=== PATIENT | male | born 1965 | race Caucasian/White ===

== ENCOUNTER 2020-08-07 13:43 | Outpatient (REF) | payer OTHER, SELFPAY ==
--- NOTE | ~2020-08-07 | XR_ITS ---
EXAMINATION: XR CHEST CLINICAL INFORMATION: Shortness of breath with pleurisy COMPARISON: July 01, 2005 report TECHNIQUE: 2 views of the chest were obtained. FINDINGS: No significant abnormality is noted involving the heart, lungs, mediastinum, bony thorax or soft tissues. XR/XR chest 2V IMPRESSION: No acute disease.
== END 2020-08-07 13:44 | disposition home or self-care (01) ==
LOC: HO.XRAY 13:43
PROVIDERS: PCP Internal Medicine Medical Oncology; Visit Provider Internal Medicine Medical Oncology
DX: R09.1 Pleurisy (principal); R06.02 Shortness of breath
CPT/HCPCS: 71046

== ENCOUNTER 2023-07-30 09:43 | Outpatient (AMB) | payer OTHER, SELFPAY ==
--- NOTE | 2023-07-30 09:52 | A.OFFVIS_ITS ---
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 States pain is mainly on his lateral aspect of elbow. Hx of elbow injection about 10 years ago with good pain relief. Pain present for about 8 months and has improved since. Denies recent injury, numbness or tingling. Referred by Dr. Moran PCP. 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 Denies trauma. Had similar right side, injection done, which resolved it. Left elbow pain constant for past several months. Had used counterforce brace. Tried tylenol. Still sensitive with gripping. No numbness. DM, controlled per patient. 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 MSK: Inspection reveals appropriate head and neck positioning. Cervical ROM was full. Spurling's sign negative. No intrinsic hand weakness noted. No atrophy noted. Meeta test negative. Carpal compression test negative. Tinel sign negative. Tender along the common extensor tendons proximal to the left lateral epicondyle. No effusion or swelling. Increased pain on left lateral epicondyle with resisted wrist extension. No tenderness on medial epicondyle. No tenderness over olecranon. No swelling over olecranon. Strength is 5/5 in all muscle groups tested. No increased tone noted. Neurological: Neurologic examination of the upper and lower extremities was nonfocal with intact sensation, muscle stretch reflexes and without focal motor deficits . Nicolas?s negative bilaterally. Gait is non-antalgic without loss of balance. Office Procedures Tendon Injection Tendon Injection Details: Common extensor tendon injection, left Consent obtained. Patient sits with supported elbow on the table at right angle and forearm supinated. Tender area along common extensor tendon slightly distal to lateral epicondyle identified. Area prepped in sterile manner. 25 gauge 0.5 in. needle inserted at tender area, injecting solution containing 10 mg Kenalog and 0.75 mL 2% lidocaine. Patient tolerated procedure well without complications. [id number] Tendon Origin/Insertion Injection All charges added?: Procedure code (CPT) selection complete Assessment & Plan Assessment & Plan (1) Lateral epicondylitis, left elbow: Code(s): M77.12 - Lateral epicondylitis, left elbow Plan Exam shows lateral epicondylitis left (common extensor tendinopathy). He has tried conservative management including counterforce brace and anti- inflammatories. Continues to bother him and restrict his activity. He would like to get an injection today. Injection done and tolerated without complications. Post injection instructions given. He is not to do any heavy lifting today. Assessment and plan discussed with patient, and patient was agreeable. All questions were answered thoroughly. He will call for follow-up as needed. Beatrice Schwarz MD, LULY Board Certified, [place] Board [employer] and Rehabilitation (ABPMR) Board Certified, [place] Board of Electrodiagnostic Medicine (ABEM) Orders: Orders AMB Injection-Tendon Today M77.12 - Lateral epicondylitis, left elbow Coding Level of Care Code New Pt Level 3 (35873) Diagnoses Lateral epicondylitis, left elbow M77.12 CPT Codes Tendon Injection - Tendon Injection 2: 05651-[id number] Tendon Origin/Insertion Injection ([id number])
[2023-07-30 09:53] VITALS: BMI 32.5
== END 2023-07-30 10:27 | disposition home or self-care (01) ==
PROVIDERS: PCP Internal Medicine Medical Oncology; Visit Provider Physical Medicine & Rehabilitation
DX: M77.12 Lateral epicondylitis, left elbow (principal)
CPT/HCPCS: 20551; 99203

== ENCOUNTER → 2023-07-30 09:43 | Outpatient (BNVA) | payer OTHER, SELFPAY | PROVIDERS: PCP Internal Medicine Medical Oncology; Visit Provider Physical Medicine & Rehabilitation | DX: M77.12 Lateral epicondylitis, left elbow (principal) | CPT/HCPCS: 20551; J3301 ==

== ENCOUNTER 2024-10-03 07:16 | Day surgery (SDC) | payer OTHER, SELFPAY ==
--- OUTSIDE RECORDS SUMMARY | 2024-09-20 08:57 | XMS_ITS ---
Author Organization [facility] Address [address] [place] [address] Care Team Providers Care Head Filter Tank Tender Helper Name Role Phone Richard Paz MD Primary Care Provider Unavailab Richard Brambila Unavailable [phone] REASON FOR VISIT screening Encounters Encounter Location Date Provider Diagnosis [facility] [address] [place] [phone] 09/19/2024 Richard Millard Plan Of Treatment Next Appt Details Provider Name:Richard Millard , 10/03/2024 08:30:00 AM, [address] [place] [address], [phone], Progress Notes * LOUISEBRAYAN HOWARDDOB:1965 ( 59 yo M)Acc No.[id number]:09/19/2024 COLON WITH MAC Patient:BRAYAN PATEL Provider:?Richard Millard MD :1965???Age:59 Y???Sex:Male Russell e:09/19/2024 Address:[address] [place], [place] [phone] Pcp:Richard Paz MD Subjective: * Chief Complaints: * ???1. Screening. * Medical History:? Objective: * Vitals:? Assessment: Plan: * Treatment: * * The named appointment provid er may or may not be the originator of this progress note, and it is not deemed complete until electronically signed by the appointment provider. Sign off status: Pending * Provider:?Richard Millard MD Date:? 025 Generated for Bhanu foreman/Malka/eTransmitting on:?09/20/2024 08:57 AM EDT
--- OUTSIDE RECORDS SUMMARY | 2024-09-20 08:58 | XMS_ITS ---
Author Organization Richard Paz III, MD Address [address] [place] [address] [place] [address] Care Team Providers Care Foundry Worker Name Role Phone Richard Paz Primary Care Provider Allergies Allergen (clinical drug ingredient) Drug/Non Drug Allergy documented on EMR Reaction Allergy Type Onset Date Status Statins Support Unknown Drug Allergy A ctive REASON FOR VISIT Follow up Medications Medication SIG (Take, Route, Frequency, Duration) Notes Start Date End Date Status Gauze Pads 3 X3 as directed - use as directed to check blood sugars on Thursday, Thursday and Fridays08/08/2019 Active Jardiance 10 MG 1 tablet Orally Once a day Dr. Naylor Active FreeStyle Lancets - as directed - use as directed to check blood sugars Thursday ,Thursday, Fridays08/08/2019 Active FreeStyle Lite Test - as directed In Vit ro as directed to check blood sugars Thursday, Thursday and Fridays08/08/2019 Active Alcohol Pads 70 % as directed - use as directed to check blood sugars Thursday , Thursday and Fridays08/08/2019 Active Pioglitazone HCl 30 MG TAKE 1 TABLET BY MOUTH EVERY DAY Active Lisinopril 20 MG TAKE 1 TABLET BY MOUTH EVERY DAY IN THE MORNING Active glyBURIDE 5 MG TAKE 2 TABLETS BY MOUTH TWICE A DAY Active metFORMIN HCl 1000 MG TAKE 1 TABLET BY MOUTH TWICE A DAY Active FreeStyle Lite - as directed - use as direct to check blood sugars Thursday , Thursday and Fridays08/08/2019 Active Mounjaro 2.5 MG/0.5ML as directed Subcutaneous Once a week Active Social History Tobacco Use: Social History Observation Description Date Details (start date - stop date) Never Smoker NA - NA Sex Assigned At : Social History Observation Description Sex Assigned At Male Tobacco Use/Smoking Question Answer Notes Patient is a nonsmoker Additional Findings: Tobacco Non-User Aggressive non-smoker Tobacco Control (Standard) Question Answer Notes Tobacco use: Nonsmoker Additional Findings: Tobacco non-user Aggressive nonsmoker Encounters Encounter Location Date Provider Diagnosis Richard Paz III, MD [address] [place] [address] [address] [place], [place] [address] 05/16/2024 Richard Paz Type 2 diabetes mellitus without complication E11.9 Assessments Encounter Date Diagnosis (ICD Code) Assessment Notes Treat ment Notes Treatment Clinical Notes 05/16/2024 Type 2 diabetes mellitus without complication (ICD-10 - E11.9) He appears to be stable. I have reviewed the elements of a diabetic and weight loss diet with him again. We made a plan to lose weight at a rate of one half of a pound per week. 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 His current hemoglobin A1c is 7.2 with a glucose of 102. Plan Of Treatment Medication Medication Name Sig Start Date Stop Date Notes Gauze Pads 3 X3 as directed - use as directed to check blood sugars on Thursday, Thursday and Fridays08/08/2019 Jardiance 10 MG 1 tablet Orally Once a day Dr. Cyndy Anthony - as directed - use as directed to check blood sugars Thursday ,Thursday, Fridays08/08/2019 FreeStyle Lite Test - as directed In Vit ro as directed to check blood sugars Thursday, Thursday and Fridays08/08/2019 Alcohol Pads 70 % as directed - use as directed to check blood sugars Thursday , Thursday and Fridays08/08/2019 Pioglitazone HCl 30 MG TAKE 1 TABLET BY MOUTH EVERY DAY Lisinopril 20 MG TAKE 1 TABLET BY KARLA TH EVERY DAY IN THE MORNING glyBURIDE 5 MG TAKE 2 TABLETS BY MO UTH TWICE A DAY metFORMIN HCl 1000 MG TAKE 1 TABLET BY M OUTH TWICE A DAY FreeStyle Lite - as directed - use as direct to check blood sugars Thursday , Thursday and Fridays08/08/2019 Mounjaro 2.5 MG/0.5ML as directed Subcut aneous Once a week Next Appt Details Provider Name:Richard Paz, 09/23/2024 09:00:00 AM, [address] [facility] [address], [place], [phone], Provider Name:Richard Kumarne, 04/17/2025 02:00:00 PM, [address] [facility] [address] [place], [place], [phone], Progress Notes * Valentino MARQUEZDOB:1965 ( 59 yo M)Acc No.[id number]:05/16/2024 Progress Notes Patient:?Valentino MARQUEZ Provider:?Richard Paz MD :1965???Age:59 Y???Sex:Male Russell e:05/16/2024 Address:[address] [place], [place] [id number] Subjective: * Chief Complaints: * ???1. Follow up. * HPI: ???COVID-19 Screening:?Questions?Have you had any new onset fever, chills, cough, congestion, sore throat, shortness of breath, muscle aches??No * ROS:?General/Constitutional:?pain?only normal aches and pains.?Chills?denies.?Fatigue?admits.?Fever?denies.?ENT:?Decreased hearing?denies.?Respiratory:?Cough?denies.?Cardiovascular:?Chest pain with exertion?denies.?Dyspnea on exertion?denies.?Shortness of breath?denies.?Gastrointestinal:?Constipation?denies.?Decreased appetite?denies.?Diarrhea?denies.?Heartburn?denies.?Nausea?denies.?Rectal bleeding?denies.?Vomiting?denies.?Hematology:?bruising?denies.?petechiae?denies.?Swollen glands?none have been noted.?Genitourinary:?Frequent urination?denies.?Musculoskeletal:?Muscle aches?denies.?Painful joints?denies.?Sciatica?denies.?Weakness?denies.?Skin:?Itching?denies.?Rash?denies.?Skin lesion(s)?denies.?Neurologic:?Difficulty speaking?denies.?Dizziness?denies.?Headache?denies.?Low back pain?denies.?Psychiatric:?Depressed mood?denies.? * Medical History:?Hyperlipide zabrina, Depression, Obesity, Hypertension secondary to endocrine disorders, Statin intolerance, Cologuard done 2019, The patient has a history of diabetes and high blood pressure. He recently had a colonoscopy.. * Surgical History:?hernia salvador rao , carpal tunnel surgery , No history . * Hospitalization/Major Diagno stic Procedure:?No history . * Family History:?Father: tony e 67 yrs, diabetes mellitus, hypertension, diagnosed with DM, HTN.?Mother: alive 67 yrs, osteoporosis, breast cancer( currently in remission), diagnosed with Cancer.?1 sister(s) - healthy. 1 son(s) , 2 daughter(s) - healthy. .? * Social History:?Tobacco Use:?Tobacco Use/Smoking?Patient is a?nonsmoker ?Additional Findings: Tobacco Non-User?Aggressive non-smoker ?Tobacco Control (Standard)?Tobacco use:?Nonsmoker ?Additional Findings: Tobacco non-user?Aggressive nonsmoker ???He has been working at [employer] for 30 years. He is . He was born in [place]. He has 2 daughters and one son who are well. The patient enjoys fishing and has a job at [employer]. * Medications:?Taking Pioglita zone HCl 30 MG Tablet TAKE 1 TABLET BY MOUTH EVERY DAY , Taking Lisinopril 20 MG Tablet TAKE 1 TABLET BY MOUTH EVERY DAY IN THE MORNING , Taking glyBURIDE 5 MG Tablet TAKE 2 TABLETS BY MOUTH TWICE A DAY , Taking metFORMIN HCl 1000 MG Tablet TAKE 1 TABLET BY MOUTH TWICE A DAY , Taking FreeStyle Lite - Device as directed - use as direct to check blood sugars Thursday , Thursday and Fridays , Taking FreeStyle Lancets - Miscellaneous as directed - use as directed to check blood sugars Thursday ,Thursday, Fridays , Taking FreeStyle Lite Test - Strip as directed In Vitro as directed to check blood sugars Thursday, Thursday and Fridays , Taking Alcohol Pads 70 % Pad as directed - use as directed to check blood sugars Thursday , Thursday and Fridays , Taking Gauze Pads 3 X3 Pad as directed - use as directed to check blood sugars on Thursday, Thursday and Fridays , Taking Jardiance 10 MG Tablet 1 tablet Orally Once a day , Notes to Pharmacist: Dr. Naylor, Taking Mounjaro 2.5 MG/0.5ML Solution Auto-injector as directed Subcutaneous Once a week , Medication List reviewed and reconciled with the patient * Allergies:?Statins Support. Objective: * Vitals:? * Examination: ???General Examination: ?GENERAL APPEARANCE:?pleasant, well nourished, well developed, in no acute distress, calm and relaxed.?HEAD:?atraumatic, normocephalic.?EYES:?eomi, perrla, anicteric, conjugate.?EARS:?normal.?NOSE:?septum intact.?ORAL CAVITY:?normal, unremarkable.?NECK/THYROID:?no jugular venous distention, no carotid bruit, thyroid normal.?LYMPH NODES:?no enlarged lymph nodes,spleen normal.?SKIN:?no suspicious lesions, anicteric.?HEART:?no clicks, gallops, murmurs, or rubs, regular rhythm, S1, S2 normal, no s3, or vascular bruits.?LUNGS:?clear to auscultation .?BREASTS:??no masses palpable bilaterally.?ABDOMEN:?bowel sounds normal, no ascites, no organomegaly, no mass.?RECTAL EXAM:?not examined.?MUSCULOSKELETAL:?extremities unremarkable, no clubbing, cyanosis or edema.?PERIPHERAL PULSES:?normal.?NEUROLOGIC:?alert and oriented, cranial nerves 2-12 grossly intact, deep tendon reflexes 2+ symmetrical, motor strength normal upper and lower extremities, sensory exam intact.?PSYCH:?alert, oriented.? Assessment: * Assessment: 1.?Type 2 diabetes mellitus without complication - E11.9???Notes :He appears to be stable. I have reviewed the elements of a diabetic and weight loss diet with him again. We made a plan to lose weight at a rate of one half of a pound per week. 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 His current hemoglobin A1c is 7.2 with a glucose of 102.??? Plan: * Treatment: 2.?Others? Continue Pioglitazone HCl Tablet, 30 MG, TAKE 1 TABLET BY MOUTH EVERY DAY;?Continue Lisinopril Tablet, 20 MG, TAKE 1 TABLET BY MOUTH EVERY DAY IN THE MORNING;?Continue glyBURIDE Tablet, 5 MG, TAKE 2 TABLETS BY MOUTH TWICE A DAY;?Continue metFORMIN HCl Tablet, 1000 MG, TAKE 1 TABLET BY MOUTH TWICE A DAY;?Continue FreeStyle Lite Device, -, as directed, -, use as direct to check blood sugars Thursday , Thursday and Fridays;?Continue FreeStyle Lancets Miscellaneous, -, as directed, -, use as directed to check blood sugars Thursday ,Thursday, Fridays;?Continue FreeStyle Lite Test Strip, -, as directed, In Vitro, as directed to check blood sugars Thursday, Thursday and Fridays;?Continue Alcohol Pads Pad, 70 %, as directed, -, use as directed to check blood sugars Thursday , Thursday and Fridays;?Continue Gauze Pads Pad, 3 X3 , as directed, -, use as directed to check blood sugars on Thursday, Thursday and Fridays;?Continue Jardiance Tablet, 10 MG, 1 tablet, Orally, Once a day, Notes to Pharmacist: Dr. Naylor.?? * Images: * The named appointment provid er may or may not be the originator of this progress note, and it is not deemed complete until electronically signed by the appointment provider. Sign off status: Pending * Provider:?Richard Paz MD Date:?05/04 Generated for Bhanu foreman/Malka/eTransmitting on:?09/20/2024 08:58 AM EDT History and Physical Notes * HPI (History of Present Illness) Category Sub-Category Detail Notes COVID-19 Screening Questions Have you had any new onset fever, chills, cough, congestion, sore throat, shortness of breath, muscle aches?: No Examination Category Sub-Category Detail Notes General Examination GENERAL APPEARANCE: pleasant , well nourished, well developed, in no acute distress, calm and relaxed HEAD: atraumatic, normocep halic EYES: eomi, perrla, anicte yaw, conjugate EARS: normal NOSE: septum intact NECK/THYROID: no jugular venous di stention, no carotid bruit, thyroid normal HEART: no clicks, gallops, murmurs, or rubs, regular rhythm, S1, S2 normal, no s3, or vascular bruits LUNGS: clear to auscultatio n ABDOMEN: bowel sounds normal, no ascites, no organomegaly, no mass NEUROLOGIC: alert and oriented, cranial nerves 2-12 grossly intact, deep tendon reflexes 2+ symmetrical, motor strength normal upper and lower extremities, sensory exam intact SKIN: no suspicious lesion s, anicteric PERIPHERAL PULSES: normal BREASTS: no masses palpable b ilaterally MUSCULOSKELETAL: extremities unremark able, no clubbing, cyanosis or edema LYMPH NODES: no enlarged lymph no cynthia,spleen normal RECTAL EXAM: not examined PSYCH: alert, oriented ORAL CAVITY: normal, unremarkable
--- OUTSIDE RECORDS SUMMARY | 2024-09-20 08:58 | XMS_ITS ---
Author Organization [facility] Address [address] [place] [address] Care Team Providers Care Dry Cleaner Helper Name Role Phone Richard Paz MD Primary Care Provider UnavailRichard Rosario [phone] Encounters Encounter Location Date Provider Diagnosis [facility] [address] [place] [address] 05/05/2024 Richard Millard Plan Of Treatment Next Appt Details Provider Name:Richard Millard , 10/03/2024 08:30:00 AM, [address] [place] [address] , [place], [place], [phone], Progress Notes * BRAYAN GILDOB:1965 ( 59 yo M)Acc No.[id number]:05/05/2024 Patient:?BRAYAN GIL :1965???Age:59 Y???Sex:Male Address:[address] [place] [id number] * true * Date:? Generated for Bhanu foreman/Malka/eTransmitting on:?09/20/2024 08:57 AM EDT
--- OUTSIDE RECORDS SUMMARY | 2024-09-20 08:58 | XMS_ITS ---
Author Organization [facility] Address [address] [place] [address] Care Team Providers Care Pantograph I Engraver Name Role Phone Richard Paz MD Primary Care Provider Unavailab Arnav Osorio Unavailable [phone] REASON FOR VISIT paid copay for 07/23/23 visit Encounters En[facility] [address] [facility] Arnav Triana Plan Of Treatment Next Appt Details Provider Name:Arnav Triana , 06/12/2025 08:30:00 AM, [address] [place] [address], [phone], Progress Notes * Valentino GIL MDOB:1965 (58 yo M)Acc No.[id number]:07/27/2023 Patient:?Valentino Gil :1965???Age:58 Y???Sex:Male Address:[address] [place] [address] * true * Date:? Generated for Printi ng/Faxing/eTransmitting on:?09/20/2024 08:57 AM EDT
--- OUTSIDE RECORDS SUMMARY | 2024-09-20 08:58 | XMS_ITS ---
Author Organization [facility] Address [address] [place] [address] Care Team Providers Care Sports Bookmaker Name Role Phone Richard Paz MD Primary Care Provider Unavailab Arnav Osorio Unavailable [phone] REASON FOR VISIT New Insurance Encounters En[facility] [address] 06/06/[facility] Arnav Triana Plan Of Treatment Next Appt Details Provider Name:Arnav Triana , 06/12/2025 08:30:00 AM, [address] [place] [address], [phone], Progress Notes * Valentino GIL MDOB:1965 (59 yo M)Acc No.[id number]:06/06/2024 Patient:?Valentino GIL :1965???Age:59 Y???Sex:Male Address:[address] [place] [address] * true * Date:? Generated for Printi ng/Faashelyg/eTransmitting on:?09/20/2024 08:58 AM EDT
--- OUTSIDE RECORDS SUMMARY | 2024-09-20 08:59 | XMS_ITS ---
Author Organization Richard Paz III, MD Address [address] [place] [address] Care Team Providers Care Construction Pit Worker Name Role Phone Richard Paz Primary Care Provider [phone] Allergies Allergen (clinical drug ingredient) Drug/Non Drug Allergy documented on EMR Reaction Allergy Type Onset Date Status Statins Support Unknown Drug Allergy A ctive REASON FOR VISIT Follow up, no tests Medications Medication SIG (Take, Route, Frequency, Duration) Notes Start Date End Date Status Alcohol Pads 70 % as directed - use as directed to check blood sugars Thursday , Thursday and Fridays08/08/2019 Active Gauze Pads 3 X3 as directed - use as directed to check blood sugars on Thursday, Thursday and Fridays08/08/2019 Active Jardiance 10 MG 1 tablet Orally Once a day Dr. Naylor Active metFORMIN HCl 1000 MG 1 tablet with a me al Orally Twice a day Active Mounjaro 7.5 MG/0.5ML as directed Subcutaneous 09/13/2024 Active FreeStyle Lancets - as directed - use as directed to check blood sugars Thursday ,Thursday, Fridays08/08/2019 Active FreeStyle Lite Test - as directed In Vit ro as directed to check blood sugars Thursday, Thursday and Fridays08/08/2019 Active glyBURIDE 5 MG TAKE 2 TABLETS BY MOUTH TWICE A DAY Active FreeStyle Lite - as directed - use as direct to check blood sugars Thursday , Thursday and Fridays08/08/2019 Active Pioglitazone HCl 30 MG TAKE 1 TABLET BY MOUTH EVERY DAY Active Lisinopril 20 MG TAKE 1 TABLET BY MOUTH EVERY DAY IN THE MORNING Active Social History Tobacco Use: Social History Observation Description Date Details (start date - stop date) Never Smoker NA - NA Sex Assigned At : Social History Observation Description Sex Assigned At Male Tobacco Control (Standard) Question Answer Notes Tobacco use: Nonsmoker Additional Findings: Tobacco non-user Aggressive nonsmoker Vital Signs Temperature 97.7 degrees Fahrenheit 09/20/19 25 Heart Rate 94 /min 09/19/2024 Height 69 in 09/19/2024 Weight 219 lbs 09/19/2024 BMI 32.34 kg/m2 09/19/2024 Encounters Encounter Location Date Provider Diagnosis Richard Paz III, MD [address] [place] [address] [place] [address] 09/19/2024 Ricahrd Paz Immunization, tetanus toxoid Z23 Assessments Encounter Date Diagnosis (ICD Code) Assessment Notes Treatment Notes Treatment Clinical Notes 09/19/2024 Immunization, tetanus toxoid (ICD-10 - Z23) He was vaccinated against tetanus. Plan Of Treatment Medication Medication Name Sig Start Date Stop Date Notes Alcohol Pads 70 % as directed - use as directed to check blood sugars Thursday , Thursday and Fridays08/08/2019 Gauze Pads 3 X3 as directed - use as directed to check blood sugars on Thursday, Thursday and Fridays08/08/2019 Jardiance 10 MG 1 tablet Orally Once a day Dr. Naylor metFORMIN HCl 1000 MG 1 tablet with a me al Orally Twice a day Mounjaro 7.5 MG/0.5ML as directed Subcutaneous 09/13/2024 FreeStyle Lancets - as directed - use as directed to check blood sugars Thursday ,Thursday, Fridays08/08/2019 FreeStyle Lite Test - as directed In Vit ro as directed to check blood sugars Thursday, Thursday and Fridays08/08/2019 glyBURIDE 5 MG TAKE 2 TABLETS BY MO UTH TWICE A DAY FreeStyle Lite - as directed - use as direct to check blood sugars Thursday , Thursday and Fridays08/08/2019 Pioglitazone HCl 30 MG TAKE 1 TABLET BY MOUTH EVERY DAY Lisinopril 20 MG TAKE 1 TABLET BY KARLA TH EVERY DAY IN THE MORNING Next Appt Details Follow Up: 2 - 3 Days, Reaso n: Telehealth Provider Name:Richard Paz, 09/23/2024 09:00:00 AM, [address], [place], [address], Provider Name:Richard Paz, 04/17/2025 02:00:00 PM, [address], [place], [address], Progress Notes * Valentino MARQUEZDOB:1965 ( 59 yo M)Acc No.[id number]:09/19/2024 Progress Notes Patient:?Valentino MARQUEZ Provider:?Richard Paz MD :1965???Age:59 Y???Sex:Male Russell e:09/19/2024 Address:[address] [place], [place] [id number] Subjective: * Chief Complaints: * ???1. Follow up. 2. No tests . * HPI: ???COVID-19 Screening:?Questions?Have you had any [...] Procedure:?No history . * Family History:?Father: tony dos santos 67 yrs, diabetes mellitus, hypertension, diagnosed with DM, HTN.?Mother: alive 67 yrs, osteoporosis, breast cancer( currently in remission), diagnosed with Cancer.?1 sister(s) - healthy. 1 son(s) , 2 daughter(s) - healthy. .? * Social History:?Tobacco Use:?Tobacco Control (Standard)?Tobacco use:?Nonsmoker ?Additional Findings: Tobacco non-user?Aggressive nonsmoker ???He has been working at [employer] for 30 years. He is . He was born in [place]. He has 2 daughters and one son who are well. The patient enjoys fishing and has a job at [employer]. * Medications:?Taking Pioglita zone HCl 30 MG [...] , Notes to Pharmacist: Dr. Naylor, Taking metFORMIN HCl 1000 MG Tablet 1 tablet with a meal Orally Twice a day , Taking Mounjaro 7.5 MG/0.5ML Solution Auto-injector as directed Subcutaneous , Discontinued Mounjaro 2.5 MG/0.5ML Solution Auto-injector as directed Subcutaneous Once a week , Medication List reviewed and reconciled with the patient * Allergies:?Statins Support. Objective: * Vitals:?Ht: 69, Wt: 219, BMI :32.34, HR: 94, Temp: 97.7, Wt-k.34. * Examination: ???General Examination: ?GENERAL APPEARANCE:?pleasant, well [...] sensory exam intact.?PSYCH:?alert, oriented.? Assessment: * Assessment: 1.?Immunization, tetanus tox oid - Z23???Notes :He was vaccinated against tetanus.??? Plan: * Treatment: 2.?Others? Continue Pioglitazone HCl Tablet, 30 MG, TAKE 1 TABLET BY MOUTH EVERY DAY;?Continue Lisinopril Tablet, 20 MG, TAKE 1 TABLET BY MOUTH EVERY DAY IN THE MORNING;?Continue glyBURIDE Tablet, 5 MG, TAKE 2 TABLETS BY MOUTH TWICE A DAY;?Continue FreeStyle Lite [...] Once a day, Notes to Pharmacist: Dr. Naylor;?Continue metFORMIN HCl Tablet, 1000 MG, 1 tablet with a meal, Orally, Twice a day.?? * Follow Up:?2 - 3 Days (Reaso n: Telehealth) * Images: * The named appointment provid er may or may not be the originator of this progress note, and it is not deemed complete until electronically signed by the appointment provider. Sign off status: Pending * Provider:?Richard Paz MD Date:?09/01 Generated for Nellyi kellen/Malka/eTransmitting on:?09/20/2024 08:58 AM EDT History and Physical [...]
--- OUTSIDE RECORDS SUMMARY | 2024-09-20 08:59 | XMS_ITS ---
Author Organization Richard Paz III, MD Address [address] [place] [address] Care Team Providers Care Corrugator Machine Operator Name Role Phone Richard Paz Primary Care Provider Allergies Allergen (clinical drug ingredient) Drug/Non Drug Allergy documented on EMR Reaction Allergy Type Onset Date Status Statins Support Unknown Drug Allergy A ctive REASON FOR VISIT Of motion injury, left third finger nail, Diabetes, Hypertension, Obesity Medications Medication SIG (Take, Route, Frequency, Duration) Notes Start Date End Date Status Gauze Pads 3 X3 as directed - use as directed to check blood sugars on Thursday, Thursday and Fridays08/08/2019 Active Jardiance 10 MG 1 tablet Orally Once a day Dr. Naylor Active Mounjaro 2.5 MG/0.5ML as directed Subcutaneous Once a week Active metFORMIN HCl 1000 MG 1 tablet with a me al Orally Twice a day Active Mounjaro 7.5 MG/0.5ML as directed Subcutaneous 09/13/2024 Active glyBURIDE 5 MG TAKE 2 TABLETS BY MOUTH TWICE A DAY Active FreeStyle Lite - as directed - use as direct to check blood sugars Thursday , Thursday and Fridays08/08/2019 Active FreeStyle Lancets - as directed - use as directed to check blood sugars Thursday ,Thursday, Fridays08/08/2019 Active FreeStyle Lite Test - as directed In Vit ro as directed to check blood sugars Thursday, Thursday and Fridays08/08/2019 Active Alcohol Pads 70 % as directed - use as directed to check blood sugars Thursday , Thursday and Fridays08/08/2019 Active Lisinopril 20 MG TAKE 1 TABLET BY MOUTH EVERY DAY IN THE MORNING Active Pioglitazone HCl 30 MG TAKE 1 TABLET BY MOUTH EVERY DAY Active Immunizations Vaccine Route Administration Date Status Comme nts Tetanus and Diphtheria Toxoids Adsorbed IM Intramuscular 09/13/2024 Administered Social History Tobacco Use: Social History Observation Description Date Details (start date - stop date) Never Smoker NA - NA Sex Assigned At : Social History Observation Description Sex Assigned At Male Tobacco Control (Standard) Question Answer Notes Tobacco use: Nonsmoker Additional Findings: Tobacco non-user Aggressive nonsmoker Problems Problem Type SNOMED Code ICD Code Onset Dates Problem Status W/U Status Risk Notes Problem 666725789 Injury of nail bed of finger of left hand, initial encounter (S69.92XA) Active confirmed The nail was 50% detached and could not be totally removed. The area was cleaned with peroxide and a Band-Aid was applied. He was given a tetanus vaccine. Followup appointment was made. Problem [id number] Immunization, tetanus toxoid (Z23) Active confirmed He was vaccinated against tetanus. Vital Signs Temperature 98.4 degrees Fahrenheit 09/14/19 25 Blood pressure systolic 138 mm Hg 09/14/19 25 Blood pressure diastolic 84 mm Hg 025 Heart Rate 91 /min 09/13/2024 Height 69 in 09/13/2024 Weight 219 lbs 09/13/2024 BMI 32.34 kg/m2 09/13/2024 Encounters Encounter Location Date Provider Diagnosis Richard Paz III, MD [address] [place] [address] [place] [address] 09/13/2024 Richard Paz Immunization, tetanu s toxoid Z23 ; Injury of nail bed of finger of left hand, initial encounter S69.92XA ; Type 2 diabetes mellitus without complication E11.9 ; Essential hypertension I10 ; Hyperlipidemia E78.5 ; Obesity E66.9 and Benign prostatic hyperplasia, unspecified whether lower urinary tract symptoms present N40.0 Assessments Encounter Date Diagnosis (ICD Code) Assessment Notes Treat ment Notes Treatment Clinical Notes 09/13/2024 Immunization, tetanu s toxoid (ICD-10 - Z23) He was vaccinated against tetanus. 09/13/2024 Injury of nail bed o f finger of left hand, initial encounter (ICD-10 - S69.92XA) The nail was 50% detached and could not be totally removed. The area was cleaned with peroxide and a Band-Aid was applied. He was given a tetanus vaccine. Followup appointment was made. 09/13/2024 Type 2 diabetes mellitus without complication (ICD-10 - E11.9) He appears to be stable. I have reviewed the elements of a diabetic and weight loss diet with him again. We made a plan to lose weight at a rate of one half of a pound per week. He will see his edge sander next month to discuss the pioglitazone. His current hemoglobin A1c is 7.2 with a glucose of 102. 09/13/2024 Essential hypertension (ICD-10 - I10) His blood pressure is stable. He admits to a high sodium intake. He was given an appointment to return to check his blood pressure. He will attempt a low sodium weight loss diet and lose several pounds. 09/13/2024 Hyperlipidemia (ICD-10 - E78.5) His total cholesterol is 219. The LDL is 140 the ratio was 4.9. He was encouraged to lose weight and consume a diet low in animal fat. Current therapy was continued without change. He is statin intolerant. 09/13/2024 Obesity (ICD-10 - E66.9) We have reviewed his weight loss strategy diet and nutrition today at length.His weight is stable with a body mass index of 32. We set a target a weight loss of 1 pound per week. 09/13/2024 Benign prostatic hyperplasia, unspecified whether lower urinary tract symptoms present (ICD-10 - N40.0) He arises from sleep about once a night to urinate. We have discussed lifestyle modification as a way to reduce nocturia. Plan Of Treatment Medication Medication Name Sig Start Date Stop Date Notes Gauze Pads 3 X3 as directed - use as directed to check blood sugars on Thursday, Thursday and Fridays08/08/2019 Jardiance 10 MG 1 tablet Orally Once a day Dr. Cyndy Caraballo 2.5 MG/0.5ML as directed Subcut aneous Once a week metFORMIN HCl 1000 MG 1 tablet with a me al Orally Twice a day Rashmi 7.5 MG/0.5ML as directed Subcutaneous 09/13/2024 glyBURIDE 5 MG TAKE 2 TABLETS BY [facility] TWICE A DAY FreeStyle Lite - as directed - use as direct to check blood sugars Thursday , Thursday and Fridays08/08/2019 FreeStyle Lancets - as directed - use as directed to check blood sugars Thursday ,Thursday, Fridays08/08/2019 FreeStyle Lite Test - as directed In Vit ro as directed to check blood sugars Thursday, Thursday and Fridays08/08/2019 Alcohol Pads 70 % as directed - use as directed to check blood sugars Thursday , Thursday and Fridays08/08/2019 Lisinopril 20 MG TAKE 1 TABLET BY KARLA TH EVERY DAY IN THE MORNING Pioglitazone HCl 30 MG TAKE 1 TABLET BY MOUTH EVERY DAY Pending Test Test Name Order Date PROFILE, FASTING (COMPREHENSIVE METABOLI C) 09/13/2024 CBC w DIFF 09/13/2024 Lipid Panel 09/13/2024 Microalbumin, Random 09/13/2024 Hemoglobin A1c 09/13/2024 Next Appt Details Follow Up: 1 Week, Reason: O V Provider Name:Richard Paz, 09/23/2024 09:00:00 AM, [address] [place] [address] [address], [place], [address], Provider Name:Richard Paz, 04/17/2025 02:00:00 PM, [address] [place] [address] [address], [place], [address], Progress Notes * Valentino MARQUEZDOB:1965 ( 59 yo M)Acc No.[id number]:09/13/2024 Progress Notes Patient:?Valentino MARQUEZ Provider:?Richard Paz MD :1965???Age:59 Y???Sex:Male Russell e:09/13/2024 Address:[address] [place] [id number] Subjective: * Chief Complaints: * ???Of motion injury, left th ird finger nailDiabetesHypertensionObesity * HPI: ???COVID-19 Screening:?He innjured his left third finger 24 hours ago while working at home.? The fingernail was transected near the clinic and was loose but still attached to have an abundance of tissue.? The area was cleaned with peroxide.? He was given an injection of tetanus vacccine.? ?He will come back to the office on September 16 remove tthe mail.? If possible.? ?His diabetes has been well-controlled.? He is under the care of an edge sander whom he will see me next October.? Blood work was ordered.? She will be sent to his edge sander, Dr. Naylor. ?Questions?Have you had any new onset fever, chills, cough, congestion, sore throat, shortness of breath, muscle aches??No * ROS:?General/Constitutional:?pain?Left third distal finger.?Chills?denies.?Fatigue?admits.?Fever?denies.?ENT:?Decreased hearing?denies.?Respiratory:?Cough?denies.?Cardiovascular:?Chest pain with exertion?denies.?Dyspnea on exertion?denies.?Shortness of breath?denies.?Gastrointestinal:?Constipation?denies.?Decreased appetite?denies.?Diarrhea?denies.?Heartburn?denies.?Nausea?denies.?Rectal bleeding?denies.?Vomiting?denies.?Hematology:?bruising?denies.?petechiae?denies.?Swollen glands?none have been noted.?Genitourinary:?Frequent urination?once a night.?Musculoskeletal:?Muscle aches?denies.?Painful joints?denies.?Sciatica?denies.?Weakness?denies.?Skin:?Itching?denies.?Rash?denies.?Skin lesion(s)?Partial avulsion left third finger nail.?Neurologic:?Difficulty speaking?denies.?Dizziness?denies.?Headache?denies.?Low back pain?denies.?Psychiatric:?Depressed mood?denies.? * Medical History:? * Surgical History:?hernia salvador rao carpal tunnel surgery No history * Hospitalization/Major Diagno stic Procedure:?No history * Family History:?Father: tony dos santos 67 yrs, diabetes mellitus, hypertension, diagnosed with DM, HTN.?Mother: alive 67 yrs, osteoporosis, breast cancer( currently in remission), diagnosed with Cancer.?1 sister(s) - healthy. 1 son(s) , 2 daughter(s) - healthy. .? * Social History:?Tobacco Use:?Tobacco Control (Standard)?Tobacco use:?Nonsmoker ?Additional Findings: Tobacco non-user?Aggressive nonsmoker ???He has been working at [employer] for 30 years. He is . He was born in [place]. He has 2 daughters and one son who are well. The patient enjoys fishing and has a job at [employer]. * Medications:?TakingMounjaro 7.5 MG/0.5ML Solution Auto-injector as directed Subcutaneous Pioglitazone HCl 30 MG Tablet TAKE 1 TABLET BY MOUTH EVERY DAY Lisinopril 20 MG Tablet TAKE 1 TABLET BY MOUTH EVERY DAY IN THE MORNING glyBURIDE 5 MG Tablet TAKE 2 TABLETS BY MOUTH TWICE A DAY FreeStyle Lite - Device as directed - use as direct to check blood sugars Thursday , Thursday and Fridays FreeStyle Lancets - Miscellaneous as directed - use as directed to check blood sugars Thursday ,Thursday, Fridays FreeStyle Lite Test - Strip as directed In Vitro as directed to check blood sugars Thursday, Thursday and Fridays Alcohol Pads 70 % Pad as directed - use as directed to check blood sugars Thursday , Thursday and Fridays Gauze Pads 3 X3 Pad as directed - use as directed to check blood sugars on Thursday, Thursday and Fridays Jardiance 10 MG Tablet 1 tablet Orally Once a day , Notes to Pharmacist: Dr. NaylormetFORMIN HCl 1000 MG Tablet 1 tablet with a meal Orally Twice a day Taking Mounjaro 7.5 MG/0.5ML Solution Auto-injector as directed Subcutaneous Taking Pioglitazone HCl 30 MG Tablet TAKE 1 TABLET BY MOUTH EVERY DAY Taking Lisinopril 20 MG Tablet TAKE 1 TABLET BY MOUTH EVERY DAY IN THE MORNING Taking glyBURIDE 5 MG Tablet TAKE 2 TABLETS BY MOUTH TWICE A DAY Taking FreeStyle Lite - Device as directed - use as direct to check blood sugars Thursday , Thursday and Fridays Taking FreeStyle Lancets - Miscellaneous as directed - use as directed to check blood sugars Thursday ,Thursday, Fridays Taking FreeStyle Lite Test - Strip as directed In Vitro as directed to check blood sugars Thursday, Thursday and Fridays Taking Alcohol Pads 70 % Pad as directed - use as directed to check blood sugars Thursday , Thursday and Fridays Taking Gauze Pads 3 X3 Pad as directed - use as directed to check blood sugars on Thursday, Thursday and Fridays Taking Jardiance 10 MG Tablet 1 tablet Orally Once a day , Notes to Pharmacist: Dr. Aaron metFORMIN HCl 1000 MG Tablet 1 tablet with a meal Orally Twice a day DiscontinuedMounjaro 2.5 MG/0.5ML Solution Auto-injector as directed Subcutaneous Once a week Medication List reviewed and reconciled with the patientDiscontinued Mounjaro 2.5 MG/0.5ML Solution Auto- injector as directed Subcutaneous Once a week Medication List reviewed and reconciled with the patient * Allergies:?Statins Supportno [Allergies Verified] Objective: * Vitals:?Ht: 69, Wt: 219, BMI :32.34, BP: 138/84, HR: 91, Temp: 98.4, Wt-k.34. * Examination: ???General Examination: ?GENERAL APPEARANCE:?pleasant, well nourished, well developed, in no acute distress, calm and relaxed, obese, man.?HEAD:?atraumatic, normocephalic.?EYES:?eomi, perrla, anicteric, conjugate.?EARS:?normal.?NOSE:?septum intact.?ORAL CAVITY:?normal, unremarkable.?NECK/THYROID:?no jugular venous distention, no carotid bruit, thyroid normal.?LYMPH NODES:?no enlarged lymph nodes,spleen normal.?SKIN:?no suspicious lesions, anicteric.?HEART:?no clicks, gallops, murmurs, or rubs, regular rhythm, S1, S2 normal, no s3, or vascular bruits.?LUNGS:?clear to auscultation .?BREASTS:??no masses palpable bilaterally.?ABDOMEN:?bowel sounds normal, no ascites, no organomegaly, no mass, centripital obesity.?RECTAL EXAM:?not examined.?MUSCULOSKELETAL:?Transfection and fracture on partial avulsion left third finger nail still attached without signs of infection or bleeding..?PERIPHERAL PULSES:?normal.?NEUROLOGIC:?alert and oriented, cranial nerves 2-12 grossly intact, deep tendon reflexes 2+ symmetrical, motor strength normal upper and lower extremities, sensory exam intact.?PSYCH:?alert, oriented.? Assessment: * Assessment: 1.?Immunization, tetanus tox oid - Z23 (Primary)???Notes :He was vaccinated against tetanus.???2.?Injury of nail bed of finger of left hand, initial encounter - S69.92XA???Notes :The nail was 50% detached and could not be totally removed.? The area was cleaned with peroxide and a Band-Aid was applied.? He was given a tetanus vaccine.? Followup appointment was made.???3.?Type 2 diabetes mellitus without complication - E11.9???Notes :He appears to be stable. I have reviewed the elements of a diabetic and weight loss diet with him again. We made a plan to lose weight at a rate of one half of a pound per week. He will see his edge sander next month to discuss the pioglitazone. His current hemoglobin A1c is 7.2 with a glucose of 102.???4.?Essential hypertension - I10???Notes :His blood pressure is stable. ?He admits to a high sodium intake. He was given an appointment to return to check his blood pressure. He will attempt a low sodium weight loss diet and lose several pounds.?5.?Hyperlipidemia - E78.5???Notes :His total cholesterol is 219. The LDL is 140 the ratio was 4.9. He was encouraged to lose weight and consume a diet low in animal fat. Current therapy was continued without change. He is statin intolerant.???6.?Obesity - E66.9???Notes :We have reviewed his weight loss strategy diet and nutrition today at length.His weight is stable with a body mass index of 32. We set a target a weight loss of 1 pound per week.???7.?Benign prostatic hyperplasia, unspecified whether lower urinary tract symptoms present - N40.0???Notes :He arises from sleep about once a night to urinate. We have discussed lifestyle modification as a way to reduce nocturia.??? Plan: * Treatment: 2.?Others? Continue Pioglitazone HCl [...] a day, Notes to Pharmacist: Dr. Naylor;?Continue Mounjaro Solution Auto-injector, 2.5 MG/0.5ML, as directed, Subcutaneous, Once a week;?Continue metFORMIN HCl Tablet, 1000 MG, 1 tablet with a meal, Orally, Twice a day.?? * Immunizations:? Tetanus and Diphtheria Toxoids Adsorbed : 0.5 mL (Dose No:1) (Route: Intramuscular) given by Richard Paz MD on Left Arm (Immunization, tetanus toxoid) ???Immunization record has been reviewed and updated. * Labs:? * ?Lab: PROFILE, FASTING ( COMPREHENSIVE METABOLIC) ?Lab: CBC w DIFF ?Lab: Lipid Panel ?Lab: Microalbumin, [place] [facility] ?Lab: Hemoglobin A1c * Procedure Codes:?55306 TD VA CCINE NO PRSRV >/= 7 [id number] Td (adult) * Preventive Medicine:? ??Counseling:?Care goal follow-up plan:?Counseling for abnormal BMI given?Yes ?Above Normal BMI Follow-up?Dietary management education, guidance, and counseling ??DM Care Plan:?Patient Lifestyle Goals?Patient wants to be able to manage diabetes without too much effort.?Treatment Goals?Blood Sugars less than < 115, HbA1C < 7.0.?Barriers?no barriers.?Self-Managment Goals?Work on weight loss, with a goal of losing 1 lb per week.? * Follow Up:?1 Week (Reason: O V) * Images: * Sign off status: Completed true * Provider:?Richard Paz MD Date:?09/01 Generated for Bhanu foreman/Malka/Rameshitting on:?09/20/2024 08:58 AM EDT History and Physical Notes * HPI (History of Present Illness) Category Sub-Category Detail Notes COVID-19 Screening Questions Have you had any new onset fever, chills, cough, congestion, sore throat, shortness of breath, muscle aches?: No Examination Category Sub-Category Detail Notes General Examination GENERAL APPEARANCE: pleasant , well nourished, well developed, in no acute distress, calm and relaxed, obese, man HEAD: atraumatic, normocep halic EYES: eomi, perrla, anicte yaw, conjugate EARS: normal NOSE: septum intact NECK/THYROID: no jugular venous di stention, no carotid bruit, thyroid normal HEART: no clicks, gallops, murmurs, or rubs, regular rhythm, S1, S2 normal, no s3, or vascular bruits LUNGS: clear to auscultatio n ABDOMEN: bowel sounds normal, no ascites, no organomegaly, no mass, centripital obesity NEUROLOGIC: alert and oriented, cranial nerves 2-12 grossly intact, deep tendon reflexes 2+ symmetrical, motor strength normal upper and lower extremities, sensory exam intact SKIN: no suspicious lesion s, anicteric PERIPHERAL PULSES: normal BREASTS: no masses palpable b ilaterally MUSCULOSKELETAL: Transfection and fra cture on partial avulsion left third finger nail still attached without signs of infection or bleeding. LYMPH NODES: no enlarged lymph no cynthia,spleen normal RECTAL EXAM: not examined PSYCH: alert, oriented ORAL CAVITY: normal, unremarkable
--- OUTSIDE RECORDS SUMMARY | 2024-09-20 08:59 | XMS_ITS | Patient Health Record ---
Author Organization [facility] Address [address] [place] [phone] Care Team Providers Care Degreasing Solution Mixer Name Role Phone Richard Paz MD Primary Care Provider UnavailRichard Rosario Unavailable [phone] Allergies No Known Allergies Reason For Referral No Information Medications Medication SIG (Take, Route, Frequency, Duration) Notes Start Date End Date Status Lisinopril 20 MG 1 tablet Orally Once a day for 30 day(s) 05/05/2024 Active metFORMIN HCl 1000 MG 1 tablet with a me al Orally Once a day for 30 day(s) 05/05/2024 Active Pioglitazone HCl 30 MG 1 tablet Orally O nce a day for 30 day(s) 05/05/2024 Active glyBURIDE 5 MG 1 tablet with breakf ast or the first main meal of the day Orally Once a day for 30 day(s) 05/05/2024 Active Atorvastatin Calcium 10 MG 1 tablet Oral ly Once a day for 30 day(s) 05/05/2024 Active Jardiance 25 MG 1 tablet Orally Once a day for 30 day(s) 05/05/2024 Active Multi Complete - as directed Orally Active Mounjaro 5 MG/0.5ML as directed Subcutaneous 05/05 Active Immunizations Vaccine Route Administration Date Status Comme nts Influenza Unknown 05/05/2024 Refused Social History Tobacco Use: Social History Observation Description Date Details (start date - stop date) Never Smoker NA - NA Tobacco Use/Smoking Question Answer Notes Patient is a nonsmoker Alcohol Screen Question Answer Notes Did you have a drink containing alcohol in the p ast year? No Points 0 Interpretation Negative Section Notes: Nonsmoker; no sig alcohol Problems Problem Type SNOMED Code ICD Code Onset Dates Problem Status W/U Status Risk Notes Problem Colon cancer screening (852587376) Colon cancer screening (Z12.11) Active confirmed Problem Pre-procedure evaluation check (798294329) Encounter for other preprocedural examination (Z01.818) Active confirmed Problem Fatty liver (783107500) Fatty liver (K76.0) Active confirmed Vital Signs Temperature 96.9 degrees Fahrenheit 05/05/2024 Blood pressure diastolic 00 mm Hg 05/05/2024 Height 5 ft 9 in in 05/05/2024 Blood pressure systolic 000 mm Hg 05/05/2024 Weight 224 lb 8 oz lbs 05/05/2024 BMI 33.15 kg/m2 05/05/2024 Encounters Encounter Location Date Provider Diagnosis [facility] [address] [place] [phone] 05/05/2024 Richard Millard Colon cancer screeni ng Z12.11 ; Fatty liver K76.0 and Encounter for other preprocedural examination Z01.818 [facility] [address] [place] [phone] 12/16/2023 Richard Millard [facility] [address] [place] [phone] 05/05/2024 Richard Millard [facility] [address] [place] [phone] 08/23/2024 Richard Millard Assessments Encounter Date Diagnosis (ICD Code) Assessment Notes Treatment Notes Treatment Clinical Notes Section Notes 05/05/2024 Colon cancer screening (ICD-10 - Z12.11) DO NOT TAKE THE MOUNJARO FOR AT LEAST 7 DAYS BEFORE THE COLONOSCOPY DO NOT TAKE THE JARDIANCE FOR THREE DAYS BEFORE THE COLONOSCOPY DO NOT TAKE THE METFORMIN AND GLYBURIDE THE NIGHT BEFORE OR ON THE MORNING OF THE COLONOSOCPY Overall, Valentino appears quite well. Given his age, his good clinical appearance, and his never having had a colonoscopy, I did recommend a colonoscopy for screening purposes. We did review the rationale for this in regard to colon cancer prevention. Full consent was obtained for this, including risks of bleeding and perforation. The procedure will be done with monitored anesthesia care. He was given the below instructions regarding adjustment of all his medications for the procedure. In regard to his reported history of fatty liver, he appears quite well and does not show any signs nor have any symptoms of liver disease. I will try to obtain copies of any recent liver tests from your office. I will also try to get a copy of his previous liver biopsy from the . We did review the diagnosis of fatty liver and his risk factors of diabetes, hyperlipidemia, and obesity. We did review the best way to treat this, at least initially, would be to control the risk factors as best as possible as he is doing. At this point I don't think he needs any particular intervention for this unless I see that he has significantly elevated LFTs in the future. Valentino was comfortable with this plan. Thank you again for allowing me to participate in Valentino's care. I shall continue to keep you advised of his progress. 05/05/2024 Fatty liver (ICD-10 - K76.0) Overall, Valentino appears quite well. Given his age, his good clinical appearance, and his never having had a colonoscopy, I did recommend a colonoscopy for screening purposes. We did review the rationale for this in regard to colon cancer prevention. Full consent was obtained for this, including risks of bleeding and perforation. The procedure will be done with monitored anesthesia care. He was given the below instructions regarding adjustment of all his medications for the procedure. In regard to his reported history of fatty liver, he appears quite well and does not show any signs nor have any symptoms of liver disease. I will try to obtain copies of any recent liver tests from your office. I will also try to get a copy of his previous liver biopsy from the . We did review the diagnosis of fatty liver and his risk factors of diabetes, hyperlipidemia, and obesity. We did review the best way to treat this, at least initially, would be to control the risk factors as best as possible as he is doing. At this point I don't think he needs any particular intervention for this unless I see that he has significantly elevated LFTs in the future. Valentino was comfortable with this plan. Thank you again for allowing me to participate in Valentino's care. I shall continue to keep you advised of his progress. 05/05/2024 Encounter for other preprocedural examination (ICD-10 - Z01.818) Overall, Valentino appears quite well. Given his age, his good clinical appearance, and his never having had a colonoscopy, I did recommend a colonoscopy for screening purposes. We did review the rationale for this in regard to colon cancer prevention. Full consent was obtained for this, including risks of bleeding and perforation. The procedure will be done with monitored anesthesia care. He was given the below instructions regarding adjustment of all his medications for the procedure. In regard to his reported history of fatty liver, he appears quite well and does not show any signs nor have any symptoms of liver disease. I will try to obtain copies of any recent liver tests from your office. I will also try to get a copy of his previous liver biopsy from the . We did review the diagnosis of fatty liver and his risk factors of diabetes, hyperlipidemia, and obesity. We did review the best way to treat this, at least initially, would be to control the risk factors as best as possible as he is doing. At this point I don't think he needs any particular intervention for this unless I see that he has significantly elevated LFTs in the future. Valentino was comfortable with this plan. Thank you again for allowing me to participate in Valentino's care. I shall continue to keep you advised of his progress. 05/05/2024 Other Need any recent liver tests from Dr. Paz's office Need liver biopsy from at [facility] Overall, Valentino appears quite well. Given his age, his good clinical appearance, and his never having had a colonoscopy, I did recommend a colonoscopy for screening purposes. We did review the rationale for this in regard to colon cancer prevention. Full consent was obtained for this, including risks of bleeding and perforation. The procedure will be done with monitored anesthesia care. He was given the below instructions regarding adjustment of all his medications for the procedure. In regard to his reported history of fatty liver, he appears quite well and does not show any signs nor have any symptoms of liver disease. I will try to obtain copies of any recent liver tests from your office. I will also try to get a copy of his previous liver biopsy from the . We did review the diagnosis of fatty liver and his risk factors of diabetes, hyperlipidemia, and obesity. We did review the best way to treat this, at least initially, would be to control the risk factors as best as possible as he is doing. At this point I don't think he needs any particular intervention for this unless I see that he has significantly elevated LFTs in the future. Valentino was comfortable with this plan. Thank you again for allowing me to participate in Valentino's care. I shall continue to keep you advised of his progress. Plan Of Treatment Future Test Test Name Order Date COLONOSCOPY 05/05/2024 Next Appt Details Provider Name:Richard Millard , 10/03/2024 08:30:00 AM, [address] [place] [address] , [place], [place], [id number], Insurance Providers Payer Name Payer Address Payer Phone Subscriber Number Group Number Insured Name Patient Relationship to Insured Coverage Start Date Coverage End Date [facility] [address] [address] [place] [address] [id number] VALENTINO GIL Self - patient is the insured Medical (General) History Medical History History ICD Code NIDDM HTN Hyperlipidemia Denies [place],CVA,Lung disease,renal disease Fatty liver--reports a liver biopsy with me in the Surgical History Surgery Date(Month/Year) Right inguinal hernia Carpal tunnel on right side
--- OUTSIDE RECORDS SUMMARY | 2024-09-20 08:59 | XMS_ITS ---
Author Organization [facility] Address [address] [place] [address] Care Team Providers Care Selling Specialist Name Role Phone Richard Paz MD Primary Care Provider Unavailab Arnav Osorio Unavailable [phone] Allergies No Known Allergies REASON FOR VISIT At Risk Footcare, Possible Infection, Toe Irritation Medications Medication SIG (Take, Route, Frequency, Duration) Notes Start Date End Date Status Extra Depth Orthopedic Shoes (1 Pair) with Customized Heat Molded Multidensity Innersoles (3 Pair) as directed Dx: NIDDM/Polyneuropathy (E11.42), Hammertoe Foot Deformity (M20.41,M20.42), Preulcerative Skin Lesion(s) (L85.1 06/06/2024 Active Pioglitazone HCl 30 MG 1 tablet Orally O nce a day for 30 day(s) Active Vitamin D3 Active Lisinopril 20 MG 1 tablet Orally Once a day for 30 day(s) Active metFORMIN HCl 1000 MG 1 tablet with a me al Orally Once a day for 30 day(s) Active Mounjaro Active glyBURIDE Active Jardiance 10 MG 1 tablet Orally Once a day for 30 day(s) Active Centrum Minis Men 50+ Active Doxycycline Hyclate Not-Taking Social History Tobacco Use: Social History Observation Description Date Details (start date - stop date) Never Smoker NA - NA Alcohol Screen Question Answer Notes Did you have a drink containing alcohol in the p ast year? No Points 0 Interpretation Negative Tobacco use other than smoking: Question Answer Notes Are you an other tobacco user? No Tobacco Control (Standard) Question Answer Notes Tobacco use: Nonsmoker Additional Findings: Tobacco non-user Current no nsmoker Vital Signs Blood pressure systolic 131 mm Hg 06/06/19 25 Blood pressure diastolic 73 mm Hg 025 Height 5ft 9in in 06/06/2024 Weight 219 lbs 06/06/2024 BMI 32.34 kg/m2 06/06/2024 Procedures Procedure Date Ordered Date Performed Result Body Sit e 93604 I&D ABSCESS- SIMPLE,SINGLE 06/06/2024 N/A Encounters Encounter Location Date Provider Diagnosis [facility] [address] [facility] [address] [place] [address] 06/06/2024 Arnav Frazierunier Type 2 diabetes mellitus with diabetic polyneuropathy E11.42 ; Abscess of toe of left foot L02.612 ; Other hammer toe(s) (acquired), right foot M20.41 and Other hammer toe(s) (acquired), left foot M20.42 Assessments Encounter Date Diagnosis (ICD Code) Assessment Notes Treatment Notes Treatment Clinical Notes Section Notes 06/06/2024 Type 2 diabetes mellitus with diabetic polyneuropathy (ICD-10 - E11.42) 06/06/2024 Abscess of toe of left foot (ICD-10 - L02.612) Patient Educated with: WOUND CARE INSTRUCTIONS. pdf (WOUND CARE INSTRUCTIONS. pdf) 06/06/2024 Other hammer toe(s) (acquired), right foot (ICD-10 - M20.41) Patient Educated with: DIABETIC FOOT CARE INSTRUCTIONS. pdf (DIABETIC FOOT CARE INSTRUCTIONS. pdf) 06/06/2024 Other hammer toe(s) (acquired), left foot (ICD-10 - M20.42) 06/06/2024 Other Plan Of Treatment Medication Medication Name Sig Start Date Stop Date Notes Extra Depth Orthopedic Shoes (1 Pair) with Customized Heat Molded Multidensity Innersoles (3 Pair) as directed Dx: NIDDM/Polyneuropathy (E11.42), Hammertoe Foot Deformity (M20.41,M20.42), Preulcerative Skin Lesion(s) (L85.1 06/06/2024 Treatment Notes Assessment Notes Abscess of toe of left foot Patient Educ ated with: WOUND CARE INSTRUCTIONS.pdf (WOUND CARE INSTRUCTIONS.pdf) Other hammer toe(s) (acquired), right fo ot Patient Educated with: DIABETIC FOOT CARE INSTRUCTIONS.pdf (DIABETIC FOOT CARE INSTRUCTIONS.pdf) Pending Test Test Name Order Date 72481 I&D ABSCESS- SIMPLE,SINGLE 025 Next Appt Details Follow Up: 1 Year, Reason: Provider Name:Arnav Del Valle Kamilah , 06/12/2025 08:30:00 AM, [address] [facility], [address], [place], [address], Procedure Notes * Category Sub-Category Detail Notes I&D nail abscess Location Medial nail bor mo, TA Procedure Performed incision a nd drainage of Single Nail Abscess with use of sterile nail nipper/316 blade. Approximately ( 0.1 ) cc purulent fluid material was drained. The infected devitalized soft tissue was curettaged to healthy bleeding bed. Any affected nail portion was removed to the eponychium . Any evidence of granuloma was also removed at this time. No underlying bone was visualized. There was minimal bleeding as hemostasis was achieved through the temporary use of either a digital tournaquet or the aforementioned local with epinephrine. An application of sterile Bacitracin dressing was performed. Local wound care instructions were discussed and dispensed. Recommended Tylenol or Motrin for pain/discomfort (75773), DIABETES: Pt was advised as to the risk of delayed or nonhealing due to diabetes. Pt is to call the office with any questions, concerns, or complications Type Single, Abscess Anesthesia 3cc of 1 percent Lid ocaine Plain local anesthesic utilizing aseptic technique Progress Notes * Valentino MARQUEZ MDOB:1965 (59 yo M)Acc No.[id number]:06/06/2024 Progress Note Patient:?Valentino MARQUEZ Provider:?Arnav Triana DPM :1965???Age:59 Y???Sex:Male Russell e:06/06/2024 Address:[address] [place] [address] Pcp:Richard Paz MD Subjective: * Chief Complaints: * ???At Risk FootcarePossible InfectionToe Irritation * HPI: ???At Risk footcare:?Pt States Last PCP Visit:?Date?05/11/2024 ???Toe pain:?Location:?B/L feet.?Duration:?several years.?Course:?worse.?Aggravated by:?shoes, any pressure.?Treatments:?change in shoes.? * ROS:?General/Constitutional:?Nausea?denies.?Vomiting?denies.?Hunger Thirst?denies.?Loss appetite?denies.?Chills?denies.?Fatigue?denies.?Fever?denies.?Night Sweats?denies.?Unexplained weight loss?denies.?Unexplained weight gain?denies.?HEENTM:?Dentures?denies.?Dizziness?denies.?Glasses/contacts?admits.?Retinopathy?den ies.?Blurred/double vision?denies.?TMJ?denies.?Discharge/drainage?denies.?Implants?denies.?Sore throat?denies.?Dental implants?admits.?Hard of hearing ?denies.?Difficulty chewing/swallowing/speaking?denies.?Nose bleeds?denies.?Sore mouth?denies.?Respiratory:?On O xygen?denies.?Pneumonia/pleurisy?denies.?Bronchitis?denies.?Emphysema?denies.?Co ughing?denies.?Cough blood?denies.?Shortness of breath?denies.?Wheezing?denies.?Cardiovascular:?Pacemaker?denies.?MVP?denies.?WPW?denies.?CHF?denies.?Heart attack?denies.?Septal defect?denies.?Rapid beat?denies.?Chest pain ?denies.?Atrial Fib.?denies.?Murmur/Palpitations?denies.?Gastrointestinal:?Hemorrhoids?denies.?Stomach/Abdominal pain?denies.?Dark blood stool?denies.?Irritable bowel ?denies.?Constipation?denies.?Diarrhea?denies.?Hematology:?Swelling?denies.?Clots?denies.?Varicose Veins?denies.?Bruising?denies.?Bleeding problem?denies.?Genitourinary:?Blood urine?denies.?Frequent/Painfu/urination/bladder control?denies.?Kidney stones?denies.?Infection (UTI)?denies.?Nephropathy?denies.?sex trans dis (STD)?denies.?Prostate?denies.?Musculoskeletal:?Hammertoes?denies.?Bunions?denies.?Back Pain?denies.?Muscle Cramps/ Resting?denies.?Muscle cramps / walking?denies.?Generalized aches and pains?denies.?Weakness?denies.?Integ.:?Li?denies.?Scars?denies.?Corns/calluses?admits.?Ingrown nails?admits.?Painful nails?denies.?Open Sores?denies.?Rashes?denies.?Neurologic:?Difficulty sleeping?denies.?Brain disorder?denies.?Numbness?denies.?Balance t rouble?denies.?Confusion?denies.?Fainting/blackouts?denies.?Tingling?denies.?Raghav mors?denies.? * Medical History:? * Surgical History:?inguinal h ernia repair, Right 1992carpal tunnel surgery, Right 1998 * Hospitalization/Major Diagno stic Procedure:?No Hospitalization History. * Family History:?Mother: aliv e, stroke, cancer, diagnosed with Diabetic - NIDDM, Unspecified essential hypertension.?Father: alive, stroke, cancer, diagnosed with Diabetic - NIDDM.?Spouse: alive.? * Social History:?Tobacco Use:?Tobacco use other than smoking?Are you an other tobacco user??No ?Tobacco Control (Standard)?Tobacco use:?Nonsmoker ?Additional Findings: Tobacco non-user?Current nonsmoker ???Drugs/Alcohol:?Drugs?Have you used drugs other than those for medical reasons in the past 12 months??Yes ?Marijuana??Yes ?Alcohol Screen?Did you have a drink containing alcohol in the past year??No ?Points?0 ?Interpretation?Negative ???Miscellaneous:?Caffeine: yes, frequency:, 3-5 cups per day. ?Exercise: yes. ?Marital status: . 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 * Medications:?TakingMounjaro Centrum Minis Men 50+ glyBURIDE Jardiance 10 MG Tablet 1 tablet Orally Once a day Lisinopril 20 MG Tablet 1 tablet Orally Once a day metFORMIN HCl 1000 MG Tablet 1 tablet with a meal Orally Once a day Pioglitazone HCl 30 MG Tablet 1 tablet Orally Once a day Vitamin D3 Taking Mounjaro Taking Centrum Minis Men 50+ Taking glyBURIDE Taking Jardiance 10 MG Tablet 1 tablet Orally Once a day Taking Lisinopril 20 MG Tablet 1 tablet Orally Once a day Taking metFORMIN HCl 1000 MG Tablet 1 tablet with a meal Orally Once a day Taking Pioglitazone HCl 30 MG Tablet 1 tablet Orally Once a day Taking Vitamin D3 Not-Taking/PRNDoxycycline Hyclate Medication List reviewed and reconciled with the patientNot-Taking/PRN Doxycycline Hyclate Medication List reviewed and reconciled with the patient * Allergies:?N.K.D.A.yes[Compa tapia Verified] Objective: * Vitals:?Ht: 5ft 9in, Wt:219, BMI:32.34, Shoe size: 12W, BP:131/73mm Hg, BS: 130, Ht-cm: 175.26 cm, Wt-k.34 kg. * ???Past Orders: ???Lab:HEMOGLOBIN A1C (GLYCO HEMOGLOBIN) (Order Date - 05/11/2024) (Collection Date & Time - 05/11/2024 01:52 PM) ? Value Reference Range ?HEMOGLOBIN A1C % (HH) 6.0 * Examination: ???Ophthalmology Referral: ?DIABETES EYE EXAM?Procedure Performed:?Yes ?Date of Exam Performed?10/15/2022 ?Diabetic Retinopathy Screening:?Yes ?Retinal Screening Performed:?Yes ?Findings of Diabetic Eye Exam:?no retinopathy?Neurological: ?SENSORY:? Neurological exam demonstrates, reduced light touch sensation, reduced sharp/dull pin prick discrimination , B/L, 5.07 monofilament test performed at plantar aspects of 5 varied sites per foot shows sensation, reduced , B/L.?Dermatologic: ?SKIN FINDINGS:?Skin exam reveals Keratotic lesion(s) located at , SUB MTH (s) , 1 , B/L , SUB MTH (s) , 5 , B/L , Plantar, Heel(s) , B/L.?Abscess/infected nail: ?INSPECTION?Reveals nail incurvation, dull pain on palpation due to neuropathy, groove laceration, inflammation, malodor, localized cellulitis, and purulent abscess with pre-operative size of approximately ( 1-2 ) mm square without exposed bone, Medial nail border, TA.?Vascular: ?DP PULSES (B):?2/4, B/L.?PT PULSES (B):?2/4, B/L.?CAPILLARY FILL TIME:?immediate, all digits, B/L.?TROPHIC CONDITION-TEXTURE/ELASTICITY/TURGOR/HAIR GROWTH (B):?normal, B/L.?TEMPERTURE GRADIENT (C):?normal, warm to cool, proximal to distal, B/L, B/L.?PIGMENTATION:?normal, B/L.?EDEMA (C):?absent, B/L.?Orthopedic: ?MUSCLE STRENGTH:?5/5 all groups in a symmetrical fashion, B/L.?DIGITAL DEFORMITIES:?Digital contracture, PIPJ, 2-5 B/L, incompl-reducible to push-up test, no over, nor underlapping, with evidence of shoe producing skin irritation.?FOOTWEAR:?worn, non-supportive, shoe gear properties exacerbate patient's foot/toe deformity , shoe gear properties exacerbate patients foot/toe deformity.?General Examination: ?GENERAL APPEARANCE:?Reveals a pleasant, alert, well nourished, well- developed, well hydrated individual, who demonstrates proper attention to hygiene/body habitus, and is in no acute distress, Pt serves as own historian for office visit today , Denies fever, chills, malaise, lymphadenopathy.?ORIENTED:?person, place, and time.?FOOT EXAM:?Lower Extremity Neurological Exam performed:?Yes ?Visual exam of foot performed:?Yes ?Date?06/06/2024 ?Footwear Evaluation?Footwear Evaluation performed:?Yes??? Assessment: * Assessment: 1.?Type 2 diabetes mellitus with diabetic polyneuropathy - E11.42 (Primary)???2.?Abscess of toe of left foot - L02.612???3.?Other hammer toe(s) (acquired), right foot - M20.41???Specify :Chronic problem, Worse (4),Rx Management (4)???4.?Other hammer toe(s) (acquired), left foot - M20.42???Specify :Chronic problem, Worse (4),Rx Management (4)??? Plan: * Treatment: 2.?Other hammer toe(s) (acqu ired), right foot? Start Extra Depth Orthopedic Shoes (1 Pair) with Customized Heat Molded Multidensity Innersoles (3 Pair), as directed, Dx: NIDDM/Polyneuropathy (E11.42), Hammertoe Foot Deformity (M20.41,M20.42), Preulcerative Skin Lesion(s) (L85.1, 1, Refills 0.?? Notes: Patient Educated with: DIABETIC FOOT CARE INSTRUCTIONS.pdf (DIABETIC FOOT CARE INSTRUCTIONS.pdf)?? * Procedures:?I&D nail abscess:?Type?Single, Abscess.?Anesthesia?3cc of 1 percent Lidocaine Plain local anesthesic utilizing aseptic technique.?Location?Medial nail border,?TA.?Procedure?Performed incision and drainage of Single Nail Abscess with use of sterile nail nipper/316 blade. Approximately ( 0.1 ) cc purulent fluid material was drained. The infected devitalized soft tissue was curettaged to healthy bleeding bed. Any affected nail portion was removed to the eponychium . Any evidence of granuloma was also removed at this time. No underlying bone was visualized. There was minimal bleeding as hemostasis was achieved through the temporary use of either a digital tournaquet or the aforementioned local with epinephrine. An application of sterile Bacitracin dressing was performed. Local wound care instructions were discussed and dispensed. Recommended Tylenol or Motrin for pain/discomfort (38098), DIABETES: Pt was advised as to the risk of delayed or nonhealing due to diabetes. Pt is to call the office with any questions, concerns, or complications.? * Procedure Codes:?77636 DRAIN AGE OF SKIN ABSCESS, Modifiers: TA * Preventive Medicine:? ??Counseling:?Discussion:?-14: Office or other outpatient visit for the evaluation and management of an established patient, which required a medically appropriate history and/or examination and MODERATE level of DECISION MAKING for: 1 OR MORE CHRONIC PROBLEM(S) THATS WORSENING, 2 STABLE CHRONIC PROBLEMS, A NEWLY DIAGNOSED PROBLEM WITH UNCERTAIN PROGNOSIS, AN ACUTE COMPLICATED INJURY WITH MULTIPLE TREATMENT OPTIONS, OR AN ACUTE PROBLEM WITH ACCOMPANYING SYSTEMIC SYMPTOMS, THAT POSE(S) A MODERATE RISK OF MORBIDITY. THIS CONDITION MAY ALSO INCLUDE RX DRUG MANAGEMENT, OR A DECISON FOR MINOR SURGERY. The visit on the day of the encounter encompassed interpreting the data and educating the patient as to the nature of their condition, treatment options available according to their individual PMH, meds, allergies, and overall health/living conditions, as well as any potential risks or complications that may occur from a failure to adhere to, and participate in, the recommended course of therapy. The discussion included a complete verbal, and/or written explanation of the examination results, any x-rays taken, the proposed diagnosis, and outline of the treatment plan. A schedule for future care needs was also explained. The patient verbalized an understanding of the instructions at this time and agreed to be an active participant in their treatment. If the patient should think of any questions or concerns after the visit, I have encouraged the patient to call the office.?Digital Surgery:?Digital surgery was discussed with the patient, We elected to try conservative treatment at the present time, due to the patients medical history and increased asssociated post-operative risks.?Digital Treatment:?HT- I explained to the patient the possible etiologies of Hammertoes, including genetics/foot type/shoegear/activity level/exercise routine and the risks/benefits of all the different treatment options for their pain including: No treatment at all, Rest, Ice, New/supportive/wider/deeper Shoegear, Digital Padding/Strapping/Taping/Bracing/Gel protective sleeves, Foot/Ankle AFO Bracing, Stretching exercises, Deep Tissue Massage, Arch support/shoe inserts with splay metatarsal padding, and Custom orthoses. I insisted that any digital devices be removed daily and not worn overnight for safety. The patient is to carefully examine the toes daily for any skin irritation while using any splinting or padding device. The advantages and disadvantages of each option were discussed and the patients questions re: shoegear, padding, custom vs prefabricated inserts, activity level, and consistency in home treatment regimens for optimal success were answered to their verbally confirmed satisfaction.?Shoe Gear Counseling:?SHOE Rx - The patient was counseled in great detail on their muscoloskeletal foot and toe deformities which coincided with the dermatological presentations visualized on exam. We discussed how their deformities put the integrity of their feet at risk for potential pedal complications which makes the accomidative diabetic shoes and cutomizable inserts medically necessary. We discussed the different shoe and insert treatment types and options, as well as the important advantages for adhering to regularly wearing these accomidative devices daily. The patient was made aware of the fact that a failure to abide by these recommedations may be deleterious to their foot health as they are able to prevent many pedal complications such as skin irritation, skin ulceration, infection, and even loss of toe/foot/leg/or life. Time was also spent with the patient dispensing and discussing proper diabetic footcare techniques including daily skin moisturization, daily foot inspection for any interruption in skin integrity including open lesions, or sign of infection such as redness/malodor/drainage/swelling. Also discussed and recommended were procedures regarding daily shoe inspection for the presence of internal foreign bodies as well as any visualized irregular shoe or insert wear. Patient questions re: shoes, inserts, and self foot inspections were answered to their satisfaction as the patient verbally confirmed a full understanding of the above information. A Rx for Extra Depth Orthopedic Shoes with 3 pair of custom heat-molded inserts was dispensed.? ??Screening/Special Tests:?Fall Risk?Screening:?No falls in the past year ?FALLS: Screening for Future Fall Risk?Have you had any falls with injury in the past year??No * Follow Up:?1 Year * Images: * Sign off status: Completed true * Provider:?Arnav Triana DPM Date:?2024 Generated for Bhanu foreman/Malka/Carmen on:?09/20/2024 08:59 AM EDT History and Physical Notes * HPI (History of Present Illness) Category Sub-Category Detail Notes Category Not es Toe pain Location: B/L feet Duration: several years Course: worse Aggravated by: shoes, any pressure Treatments: change in shoes At Risk footcare Pt States Last PCP Visit: Date: 5 Examination Category Sub-Category Detail Notes Category Not es Neurological SENSORY: Neurological exa m demonstrates, reduced light touch sensation, reduced sharp/dull pin prick discrimination , B/L, 5.07 monofilament test performed at plantar aspects of 5 varied sites per foot shows sensation, reduced , B/L Dermatologic SKIN FINDINGS: Skin exam reveal s Keratotic lesion(s) located at , SUB MTH (s) , 1 , B/L , SUB MTH (s) , 5 , B/L , Plantar, Heel(s) , B/L Orthopedic FOOTWEAR EVALUATION: worn, non-s upportive, shoe gear properties exacerbate patient's foot/toe deformity , shoe gear properties exacerbate patients foot/toe deformity DIGITAL DEFORMITIES: Digital contracture , PIPJ, 2-5 B/L, incompl-reducible to push-up test, no over, nor underlapping, with evidence of shoe producing skin irritation MUSCLE STRENGTH: 5/5 all groups in a symmetrical fashion, B/L General Examination GENERAL APPEARANCE: Reveals a pleasant, alert, well nourished, well-developed, well hydrated individual, who demonstrates proper attention to hygiene/body habitus, and is in no acute distress, Pt serves as own historian for office visit today , Denies fever, chills, malaise, lymphadenopathy FOOT EXAM: Lower Extremity Neurological Exa m performed:: Yes Visual exam of foot performed:: Yes Date: 06/06/2024 ORIENTED: person, place, and t ethan Footwear Evaluation Footwear Evaluation performe d:: Yes Ophthalmology Referral DIABETES EYE EXAM Procedure Perform ed:: Yes ?Date of Exam Performed: 10/15/2022 Diabetic Retinopathy Screening:: Yes Retinal Screening Performed:: Yes Findings of Diabetic Eye Exam:: no retin opathy Vascular DP PULSES (B): 2/4, B/L PT PULSES (B): 2/4, B/L CAPILLARY FILL TIME: immediate, all digi ts, B/L TEMPERTURE GRADIENT (C): normal, warm to cool, proximal to distal, B/L, B/L TROPHIC CONDITION-TEXTURE/ELASTICITY/TURGOR/HAIR GROWTH (B): normal, B/L EDEMA (C): absent, B/L PIGMENTATION: normal, B/L Abscess/infected nail INSPECTION Reveals na il incurvation, dull pain on palpation due to neuropathy, groove laceration, inflammation, malodor, localized cellulitis, and purulent abscess with pre-operative size of approximately ( 1-2 ) mm square without exposed bone, Medial nail border, TA
--- OUTSIDE RECORDS SUMMARY | 2024-09-20 08:59 | XMS_ITS | Patient Health Record ---
[facility] Organization [facility] Address [address] [place] [address] Care Team Providers Care Senior Instructor Name Role Phone Richard Paz MD Primary Care Provider Unavailab Arnav Osorio Unavailable [phone] Allergies No Known Allergies Results Component Value Reference Range Notes HEMOGLOBIN A1C (GLYCOHEMOGLO BIN) Reviewed date:06/06/2024 01:53:19 PM Interpretation: Performing Lab: Notes/Report: HEMOGLOBIN A1C % (HH) 6.0 Reason For Referral No Information Medications Medication SIG (Take, Route, Frequency, Duration) Notes Start Date End Date Status Mounjaro Active glyBURIDE Active Extra Depth Orthopedic Shoes (1 Pair) with Customized Heat Molded Multidensity Innersoles (3 Pair) as directed Dx: NIDDM/Polyneuropathy (E11.42), Hammertoe Foot Deformity (M20.41,M20.42), Preulcerative Skin Lesion(s) (L85.1 06/06/2024 Active Jardiance 10 MG 1 tablet Orally Once a day for 30 day(s) Active Centrum Minis Men 50+ Active Doxycycline Hyclate Not-Taking Pioglitazone HCl 30 MG 1 tablet Orally O nce a day for 30 day(s) Active Vitamin D3 Active Lisinopril 20 MG 1 tablet Orally Once a day for 30 day(s) Active metFORMIN HCl 1000 MG 1 tablet with a me al Orally Once a day for 30 day(s) Active Social History Tobacco Use: Social History [...] Additional Findings: Tobacco non-user Current no nsmoker Problems Problem Type SNOMED Code ICD Code Onset Dates Problem Status W/U Status Risk Notes Problem Acquired hammer toe of right foot (9242024278935154 ) Other hammer toe(s) (acquired), right foot (M20.41) Active confirmed Problem Acquired hammer toe of left foot (4193645475914492 ) Other hammer toe(s) (acquired), left foot (M20.42) Active confirmed Problem Polyneuropathy due to type 2 diabetes mellitus (887622037) Type 2 diabetes mellitus with diabetic polyneuropathy (E11.42) Active confirmed Vital Signs Blood pressure diastolic 73 mm Hg 06/06/2024 Height 5ft 9in in 06/06/2024 Blood pressure systolic 131 mm Hg 06/06/2024 Weight 219 lbs 06/06/2024 BMI 32.34 kg/m2 06/06/2024 Procedures Procedure Date Ordered Date Performed Result Body [place] e [address]2351 I&D ABSCESS- SIMPLE,SINGLE 06/06/2024 N/A Encounters Encounter Location Date Provider Diagnosis [facility] [address] [address] 06/06/2024 Arnav Triana Type 2 diabetes mellitus with diabetic polyneuropathy E11.42 ; Abscess of toe of left foot L02.612 ; Other hammer toe(s) (acquired), right foot M20.41 and Other hammer toe(s) (acquired), left foot M20.42 [facility] [address] [address] 06/06/2024 Arnav Triana Assessments Encounter Date Diagnosis (ICD Code) Assessment [...] - M20.42) 06/06/2024 Other Plan Of Treatment Pending Test Test Name Order Date 65563 I&D ABSCESS- SIMPLE,SINGLE 025 86445- I&D ABSCESS-COMPLICATED,MULTI Next Appt Details Provider Name:Arnav Ivon Triana , 06/12/2025 08:30:00 AM, [address], [address], [place], [address], Insurance Providers Payer Name Payer Address Payer Phone Subscriber Number Group Number Insured Name Patient Relationship to Insured Coverage Start Date Coverage End Date 90 Degree Benefits [address] [address] [place] [address] [id number] Valentino Marquez Self - patient is the insured [employer] [address] [place] [address] [id number] Valentino Marquez Self - patient is the insured Medical (General) History Medical History History ICD Code Chicken pox type II diabetes High blood pressure Surgical History Surgery Date(Month/Year) inguinal hernia repair, Right 1991 carpal tunnel surgery, Right 1997
--- OUTSIDE RECORDS SUMMARY | 2024-09-20 08:59 | XMS_ITS | Patient Health Record ---
Author Organization Richard Paz III, MD Address [address] [place] [address] Care Team Providers Care Extract Wringer Name Role Phone Richard Paz Primary Care Provider Allergies Allergen (clinical drug ingredient) Drug/Non Drug Allergy documented on EMR Reaction Allergy Type Onset Date Status Statins Support Unknown Drug Allergy A ctive Results Component Value Reference Range Notes URINE DIP STICK Reviewed date:04/11/2024 02:04:35 PM Interpretation: Performing Lab: Notes/Report: SG 1.010 1.005 - 1.025 pH 5.0 5.0 - 9.0 BOO Negative Negative - NIT Negative Negative - PRO Negative Negative - Trace GLU 2000 mg/dl Negative - KET Negative Negative - UBG 0.2 0.1 - 1.8 BROOKS Negative 0.2 - 1.3 BLD Negative Negative - PROFILE, FASTING (COMPREHENS VANI METABOLIC) Reviewed date:06/01/2024 03:29:44 PM Interpretation: Performing Lab: Notes/Report: PSA, TOTAL Reviewed date:06/01/2024 03:29:55 PM Interpretation: Performing Lab: Notes/Report: CBC WITH AUTO DIFF Reviewed date:06/01/2024 03:30:08 PM Interpretation: Performing Lab: Notes/Report: Lipid Panel Reviewed date:06/01/2024 03:30:20 PM Interpretation: Performing Lab: Notes/Report: Microalbumin, Random Reviewed date:06/01/2024 03:30:31 PM Interpretation: Performing Lab: Notes/Report: Hemoglobin A1c Reviewed date:06/01/2024 03:30:43 PM Interpretation: Performing Lab: Notes/Report: Reason For Referral No Information Medications Medication SIG (Take, Route, Frequency, Duration) Notes Start Date End Date Status FreeStyle Lancets - as directed - use [...] me al Orally Twice a day Active Pioglitazone HCl 30 MG TAKE 1 TABLET BY MOUTH EVERY DAY Active Mounjaro 7.5 MG/0.5ML as directed Subcutaneous 09/13/2024 Active Lisinopril 20 MG TAKE 1 TABLET BY MOUTH EVERY DAY IN THE MORNING Active glyBURIDE 5 MG TAKE 2 TABLETS BY MOUTH TWICE A DAY Active FreeStyle Lite - as directed - use as direct to check blood sugars Thursday , Thursday and Fridays08/08/2019 Active Immunizations Vaccine Route Administration Date Status Comme nts Influenza IM Intramuscular 05/09/2012 Administered Lot# [id number], Exp. 6- Td (adult) IM Intramuscular 10/31/2013 Administered Influenza IM Intramuscular 04/16/2015 Administered Influenza IM Intramuscular 03/24/2016 Administered Influenza no Preserv 3 and > Unknown 04/26/2017 Administered Influenza no Preserv 3 and > IM Intramuscular 03/15/2018 Administered Influenza no Preserv 3 and > IM Intramuscular 03/14/2019 Administered Influenza, quad IM Intramuscular 03/12/2020 Administered COVID 19 Moderna Unknown 09/24/2020 Administered COVID 19 Moderna Unknown 08/27/2020 Administered COVID-19 Moderna SPIKEVAX Unknown 04/06/2023 Administered Influenza, quad Unknown 04/06/2023 Administered COVID-19 Moderna SPIKEVAX Unknown 04/06/2023 Administered Tetanus and Diphtheria Toxoids Adsorbed IM Intramuscular 09/13/2024 Administered Social History Tobacco Use: Social History Observation Description Date Details (start date - stop date) Never Smoker NA - NA Sex Assigned At : Social History Observation Description Sex Assigned At Male Tobacco Control (Standard) Question Answer Notes Tobacco use: Nonsmoker Additional Findings: Tobacco non-user Aggressive nonsmoker AUDIT-C (Standard) Question Answer Notes Did you have a drink containing alcohol in the p ast year? No Points 0 Interpretation Negative Problems Problem Type SNOMED Code ICD Code Onset Dates Problem Status W/U Status Risk Notes Problem 90285136 Hyperlipidemia (E78.5) Active confirmed His total cholesterol is 219. The LDL is 140 the ratio was 4.9. He was encouraged to lose weight and consume a diet low in animal fat. Current therapy was continued without change. He is statin intolerant. Problem 031438759 Obesity (E66.9) Active confirmed We have reviewed his weight loss strategy diet and nutrition today at length.His weight is stable with a body mass index of 32. We set a target a weight loss of 1 pound per week. Problem 66371998 Essential hypertension (I10) Active confirmed His blood pressure is stable. He admits to a high sodium intake. He was given an appointment to return to check his blood pressure. He will attempt a low sodium weight loss diet and lose several pounds. Problem 47329400 Type 2 diabetes mellitus without complication (E11.9) Active confirmed He appears to be stable. I have reviewed the elements of a diabetic and weight loss diet with him again. We made a plan to lose weight at a rate of one half of a pound per week. He will see his endocrinologis t next month to discuss the pioglitazone. His current hemoglobin A1c is 7.2 with a glucose of 102. Problem 546446342 Benign prostatic hyperplasia, unspecified whether lower urinary tract symptoms present (N40.0) Active confirmed He arises from sleep about once a night to urinate. We have discussed lifestyle modification as a way to reduce nocturia. Problem 498205204 Immunization, tetanus toxoid (Z23) Active confirmed He was vaccinated against tetanus. Problem 905796207 Injury of nail bed of finger of left hand, initial encounter (S69.92XA) Active confirmed The nail was 50% detached and could not be totally removed. The area was cleaned with peroxide and a Band-Aid was applied. He was given a tetanus vaccine. Followup appointment was made. Vital Signs Heart Rate 94 /min 09/19/2024 Temperature 97.7 degrees Fahrenheit 09/19/2024 Blood pressure diastolic 84 mm Hg 09/13/2024 Height 69 in 09/19/2024 Blood pressure systolic 138 mm Hg 09/13/2024 Weight 219 lbs 09/19/2024 BMI 32.34 kg/m2 09/19/2024 Encounters Encounter Location Date Provider Diagnosis Richard Paz III, MD [address] [place] [address] [place] [address] 09/19/2024 Richard Paz Immunization, tetanu s toxoid Z23 Richard Paz III, MD [address] [place] [address] [place] [address] 04/11/2024 Richard Paz Encounter for immunization Z23 ; Type 2 diabetes mellitus without complication E11.9 ; Obesity E66.9 ; Essential hypertension I10 ; Hyperlipidemia E78.5 and Benign prostatic hyperplasia, unspecified whether lower urinary tract symptoms present N40.0 Richard Paz III, MD [address] [place] [address] [place] [address] 09/13/2024 Richard Paz Immunization, tetanu s toxoid Z23 ; Injury of nail bed of finger of left hand, initial encounter S69.92XA ; Type 2 diabetes mellitus without complication E11.9 ; Essential hypertension I10 ; Hyperlipidemia E78.5 ; Obesity E66.9 and Benign prostatic hyperplasia, unspecified whether lower urinary tract symptoms present N40.0 Richard Paz III, MD [address] [place] [address] [place] [address] 02/10/2024 Richard Paz Type 2 diabetes chandler itus without complication E11.9 ; Hyperlipidemia E78.5 and Obesity E66.9 Richard Paz III, MD [address] [place] [address] [place] [address] 05/05/2024 Richard Paz III, MD [address] [place] [address] [place] [address] 05/13/2024 Richard Paz Type 2 diabetes chandler itus without complication E11.9 ; Hyperlipidemia E78.5 ; Obesity E66.9 and Benign prostatic hyperplasia, unspecified whether lower urinary tract symptoms present N40.0 Assessments Encounter Date Diagnosis (ICD Code) Assessment Notes Treat ment Notes Treatment Clinical Notes 09/19/2024 Immunization, tetanu s toxoid (ICD-10 - Z23) He was vaccinated against tetanus. 04/11/2024 Encounter for immunization (ICD-10 - Z23) He received influenza vaccine today without difficulty. There were no complications. Informed consent was obtained. 04/11/2024 Type 2 diabetes mellitus without complication (ICD-10 - E11.9) He appears to be stable. I have reviewed the elements of a diabetic and weight loss diet with him again. We made a plan to lose weight at a rate of one half of a pound per week. 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 His current hemoglobin A1c is 7.2 with a glucose of 102. 09/13/2024 Immunization, tetanu s toxoid (ICD-10 - Z23) He was vaccinated against tetanus. 09/13/2024 Injury of nail bed o f finger of left hand, initial encounter (ICD-10 - S69.92XA) The nail was 50% detached and could not be totally removed. The area was cleaned with peroxide and a Band-Aid was applied. He was given a tetanus vaccine. Followup appointment was made. 02/10/2024 Type 2 diabetes mellitus without complication (ICD-10 - E11.9) 05/13/2024 Type 2 diabetes mellitus without complication (ICD-10 - E11.9) 04/11/2024 Obesity (ICD-10 - E66.9) We have reviewed his weight loss strategy diet and nutrition today at length.His weight is stable with a body mass index of 32. We set a target a weight loss of 1 pound per week. 09/13/2024 Type 2 diabetes mellitus without complication (ICD-10 - E11.9) He appears to be stable. I have reviewed the elements of a diabetic and weight loss diet with him again. We made a plan to lose weight at a rate of one half of a pound per week. 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 His current hemoglobin A1c is 7.2 with a glucose of 102. 02/10/2024 Hyperlipidemia (ICD-10 - E78.5) 05/13/2024 Hyperlipidemia (ICD-10 - E78.5) 04/11/2024 Essential hypertension (ICD-10 - I10) His blood pressure was elevated at 148/80. He admits to a high sodium intake. He was given an appointment to return to check his blood pressure. He will attempt a low sodium weight loss diet and lose several pounds. If necessary his medications will be increased. 09/13/2024 Essential hypertension (ICD-10 - I10) His blood pressure is stable. He admits to a high sodium intake. He was given an appointment to return to check his blood pressure. He will attempt a low sodium weight loss diet and lose several pounds. 02/10/2024 Obesity (ICD-10 - E66.9) 05/13/2024 Obesity (ICD-10 - E66.9) 04/11/2024 Hyperlipidemia (ICD-10 - E78.5) His total cholesterol is 219. The LDL is 140 the ratio was 4.9. He was encouraged to lose weight and consume a diet low in animal fat. Current therapy was continued without change. He is statin intolerant. 09/13/2024 Hyperlipidemia (ICD-10 - E78.5) His total cholesterol is 219. The LDL is 140 the ratio was 4.9. He was encouraged to lose weight and consume a diet low in animal fat. Current therapy was continued without change. He is statin intolerant. 05/13/2024 Benign prostatic hyperplasia, unspecified whether lower urinary tract symptoms present (ICD-10 - N40.0) 04/11/2024 Benign prostatic hyperplasia, unspecified whether lower urinary tract symptoms present (ICD-10 - N40.0) He arises from sleep about once a night to urinate. We have discussed lifestyle modification as a way to reduce nocturia. 09/13/2024 Obesity (ICD-10 - E66.9) We have [...] way to reduce nocturia. Plan Of Treatment Pending Test Test Name Order Date PROFILE, FASTING (COMPREHENSIVE METABOLI C) 02/10/2024 PROFILE, FASTING (COMPREHENSIVE METABOLI C) 09/13/2024 PROFILE, FASTING (COMPREHENSIVE METABOLI C) 07/20/2023 CBC w DIFF 09/13/2024 XR CHEST 2 VIEW PA & LAT 08/07/2020 CBC WITH AUTO DIFF 02/10/2024 CBC WITH AUTO DIFF 07/20/2023 Lipid Panel 09/13/2024 Lipid Panel 07/20/2023 Lipid Panel 02/10/2024 Microalbumin, Random 02/10/2024 Microalbumin, Random 09/13/2024 Microalbumin, Random 07/20/2023 Hemoglobin A1c 02/10/2024 Hemoglobin A1c 09/13/2024 Hemoglobin A1c 07/20/2023 Next Appt Details Provider Name:Richard Paz, 09/23/2024 09:00:00 AM, [address] [place] [address] [address], [place], [address], Provider Name:Richard Paz, 04/17/2025 02:00:00 PM, [address] [place] [address] [address], [place], [address], Insurance Providers Payer Name Payer Address Payer Phone Subscriber Number Group Number Insured Name Patient Relationship to Insured Coverage Start Date Coverage End Date 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 He recently had a colonoscopy. Surgical History Surgery Date(Month/Year) No history carpal tunnel surgery hernia surgery Hospitalization History Reason Date(Month/Year) No history
--- OUTSIDE RECORDS SUMMARY | 2024-09-20 08:59 | XMS_ITS ---
Author Organization [facility] Address [address] [place] [address] Care Team Providers Care Disability Hearing Officer Name Role Phone Richard Paz MD Primary Care Provider Unavailab Richard Brambila Unavailable [phone] REASON FOR VISIT new ins info - 08/23 Encounters Encounter Location Date Provider Diagnosis [facility] [address] [place] [address] 08/23/2024 Richard Millard Plan Of Treatment Next Appt Details Provider Name:Richard Millard , 10/03/2024 08:30:00 AM, [address] [place] [address] , [place], [place], [phone], Progress Notes * BRAYAN GILDOB:1965 ( 59 yo M)Acc No.[id number]:08/23/2024 Patient:BRAYAN PATEL :1965???Age:59 Y???Sex:Male Address:[address] [place] [id number] * true * Date:? Generated for Printi ng/Faashelyg/eTransmitting on:?09/20/2024 08:58 AM EDT
[2024-09-29 14:04] VITALS: BMI 33.1
--- NOTE | 2024-09-30 09:06 | HO.ANESPROP2 ---
Documented by User: Shreya Leger NP 09/30/24 09:06 HPI - Anesthesia Eval Consult details Narrative: 59yo M for ?Colonoscopy Anesthesia Pre-Procedure Meds Is the patient on any of the following meds?: GLP1/DPP4 and SGLT2 Inhib PMFSH Active Problems Active Problems: All Active Problems Lateral epicondylitis, left elbow (Acute) Past Medical History Medical History (Updated 09/29/24 @ 14:03 by Kaye Rojas RN) Fatty liver Hyperlipidemia HTN (hypertension) Diabetes Surgical History Surgical History (Updated 07/30/23 @ 09:56 by EDYTA Villeda) History of carpal tunnel surgery of right wrist Hx of inguinal hernia surgery Social History Social History (Updated 07/30/23 @ 09:56 by EDYTA Villeda) Patient Tobacco Use Status: Never used Tobacco Use of substances other than those prescribed or required for medical reasons: Yes Substance Use Type Other:: THC gummies 2x/mos Are you DNR?: No Advance Directives: No Advance Directives Information Provided: Yes Current occupational status: employed 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 Meds Allergies Allergy/AdvReac Type Severity Reaction Status Date / Time No Known Allergies Allergy Verified 10/03/24 07:33 Home Medications ?Medication ?Instructions ?Recorded ?Confirmed ?Last Taken ?Type glyburide 5 mg tablet 5 mg PO DAILY 07/30/23 10/03/24 Unknown History lisinopril 20 mg tablet 20 mg PO DAILY 07/30/23 10/03/24 10/03/24 06:00 History metformin 1,000 mg tablet 1,000 mg PO DAILY 07/30/23 10/03/24 Unknown History pioglitazone 30 mg tablet 30 mg PO DAILY 07/30/23 10/03/24 Unknown History atorvastatin 10 mg tablet 10 mg PO QPM 09/29/24 10/03/24 Unknown History empagliflozin 25 mg tablet 25 mg PO DAILY 09/29/24 10/03/24 09/28/24 History (Jardiance) multivitamin 1 tab PO DAILY 09/29/24 10/03/24 Unknown History tirzepatide 5 mg/0.5 mL 5 mg subcut QWEEK 09/29/24 10/03/24 09/19/24 History subcutaneous pen injector (Mountoritoro) Exam Height,Weight and Vital Signs: Height 5 ft 9 in Weight 101.605 kg Assessment and Plan Assessment Anesthesia Assessment: Chart Reviewed Documented by User: Grant Caicedo MD 10/03/24 08:35 HPI - Anesthesia Eval Anesthesia Pre-Procedure Meds If yes to any meds - educate patient: Pt education - possibility of cancelled proc at provider's discretion PMFSH Past Medical History Medical History (Updated 09/29/24 @ 14:03 by Kaye Rojas RN) Fatty liver Hyperlipidemia HTN (hypertension) Diabetes Family History Family history of problems with anesthesia: No Surgical History Surgical History (Updated 07/30/23 @ 09:56 by EDYTA Villeda) History of carpal tunnel surgery of right wrist Hx of inguinal hernia surgery History of Problems with Anesthesia: No Social History Social History (Updated 07/30/23 @ 09:56 by EDYTA Villeda) Patient Tobacco Use Status: Never used Tobacco Use of substances other than those prescribed or required for medical reasons: Yes Substance Use Type Other:: THC gummies 2x/mos Are you DNR?: No Advance Directives: No Advance Directives Information Provided: Yes Current occupational status: employed 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 Meds Allergies Allergy/AdvReac Type Severity Reaction Status Date / Time No Known Allergies Allergy Verified 10/03/24 07:33 Home Medications ?Medication ?Instructions ?Recorded ?Confirmed ?Last Taken ?Type glyburide 5 mg tablet 5 mg PO DAILY 07/30/23 10/03/24 Unknown History lisinopril 20 mg tablet 20 mg PO DAILY 07/30/23 10/03/24 10/03/24 06:00 History metformin 1,000 mg tablet 1,000 mg PO DAILY 07/30/23 10/03/24 Unknown History pioglitazone 30 mg tablet 30 mg PO DAILY 07/30/23 10/03/24 Unknown History atorvastatin 10 mg tablet 10 mg PO QPM 09/29/24 10/03/24 Unknown History empagliflozin 25 mg tablet 25 mg PO DAILY 09/29/24 10/03/24 09/28/24 History (Jardiance) multivitamin 1 tab PO DAILY 09/29/24 10/03/24 Unknown History tirzepatide 5 mg/0.5 mL 5 mg subcut QWEEK 09/29/24 10/03/24 09/19/24 History subcutaneous pen injector (Mounjaro) Exam Airway Mallampati Class: II TM Dist: >3cm Neck ROM: Full Loose/Missing/Broken Teeth: Yes (loose uppers) and Upper Heart: ok Lungs: ok Assessment and Plan Assessment Anesthesia Assessment: Anesthesia Plan Discussed Final Anesthetic Review Family History of Problems with Anesthesia: No History of Problems with Anesthesia: No NPO: Yes ASA Class: II Final Preanesthetic Review: No Changes in Pt Med Stat, Meds/Allgs Chart Reviewed, Consent Obtained/Reviewed and Anes Risks/Benef Reviewed Patient Risk: Intermediate Procedure Risk: Low Anesthetic Plan Anesthetic Plan: MAC: and Agree w/ Assess. and Plan Disposition: Standard PACU
[2024-10-03 07:35] VITALS: BMI 31.0
[2024-10-03 07:39] VITALS: BP 128/76; PULSE 67; RESP 16; TEMP 36.5; O2SAT 96
[2024-10-03 08:01] LABS: Glucose, Whole Blood 149 mg/dL (60-115)
[2024-10-03] MEDS: Lactated Ringers 1,000 ML 100 ML IVCONT (08:09)
[2024-10-03 09:27] VITALS: BP 119/80; PULSE 70; RESP 20; TEMP 36.8; O2SAT 94
--- NOTE | 2024-10-03 09:28 | PM.OP ---
Brief Operative Note Date of Service: 10/03/24 Pre-op diagnosis: Screening Post-op diagnosis: other (Polyps) Procedure: Colonoscopy to the cecum with bx/removal of polyps at 60cm and hot snare polypectomy at 15cm Surgeon: Richard Millard MD Anesthesia: MAC Was an Primer Inserting Machine Operator used for this Procedure?: No Estimated blood loss (mL): 2.0 Pathology: other (A. Polyps at 60cm B. Polyp at 15cm) Condition: stable Disposition: PACU
[2024-10-03 09:42] VITALS: BP 154/91; PULSE 60; RESP 20; O2SAT 97
[2024-10-03 09:57] VITALS: BP 148/94; PULSE 62; RESP 20; TEMP 36.8; O2SAT 99
--- NOTE | 2024-10-03 10:06 | OP_ITS ---
DATE OF SERVICE: 10/03/2024 SURGEON: Richard Millard MD INDICATIONS: The patient presents for evaluation of colorectal cancer screening. Full consent was obtained from him for this, including risks of bleeding and perforation. PREOPERATIVE DIAGNOSIS: Colorectal cancer screening. POSTOPERATIVE DIAGNOSIS: PROCEDURE PERFORMED: Colonoscopy to the cecum with biopsy and removal of polyps, and hot snare polypectomy x1. ESTIMATED BLOOD LOSS: COMPLICATIONS: ANESTHESIA: Medication used, monitored anesthesia care. ASSISTANTS: SPECIMENS: POSTOPERATIVE DIAGNOSES: Colorectal cancer screening, colon polyps, diverticulosis, and internal hemorrhoids. DESCRIPTION OF PROCEDURE: The patient was placed in the left lateral decubitus position. The digital rectal exam revealed no abnormalities. The Olympus video pediatric colonoscope was entered into the rectum, advanced easily to the cecum. Once in the cecum I did identify normal-appearing cecal pouch with appendiceal orifice and a normal-appearing ileocecal valve. The entire cecum and ileocecal valve appeared normal. Scope was slowly withdrawn assessing all mucosal surfaces carefully. Preparation was excellent. At 60 cm were 2 flat, less than 5 mm polyps which were each biopsied and completely removed with cold biopsy forceps. At 15 cm, was an approximately 6 mm polyp on a short stalk which was removed by hot snare polypectomy and recovered by suction. The polypectomy site appeared clean, without any sign of residual polyp nor bleeding. I did not visualize any other polyps, colitis, nor angiodysplasia. There was a mild amount of sigmoid diverticulosis. In the rectum, scope was retroflexed visualizing internal hemorrhoids, but no other pathology. The rectal mucosa appeared normal. The scope was straightened and withdrawn from the patient. He tolerated the procedure well and was returned to the recovery area in stable condition. IMPRESSION: 1. Colon polyps. 2. Diverticulosis. 3. Internal hemorrhoids. PLAN: The results of the pathology will be checked. If any these are tubular adenoma I would recommend a followup coloscopy in 5 years. If they are all hyperplastic and/or inflammatory, I would recommend a followup colonoscopy in 10 years for further screening. He was advised not to use any aspirin or NSAIDs for 1 week. MD JEVON Bautista/LEELEEL / [id number]
== END 2024-10-03 10:24 | disposition home or self-care (01) ==
PROVIDERS: PCP Internal Medicine Medical Oncology; Visit Provider Internal Medicine
PROC: 0DJD8ZZ Inspection of Lower Intestinal Tract, Via Natural or Artificial Opening Endoscopic (ICD-10-PCS; CPT 45378; principal; 2024-10-03 08:30)
DX: Z12.11 Encounter for screening for malignant neoplasm of colon (principal); D12.4 Benign neoplasm of descending colon; K63.5 Polyp of colon; K57.30 Diverticulosis of large intestine without perforation or abscess without bleeding; K64.8 Other hemorrhoids; K76.0 Fatty (change of) liver, not elsewhere classified; I10 Essential (primary) hypertension; E78.5 Hyperlipidemia, unspecified; E11.9 Type 2 diabetes mellitus without complications; Z79.84 Long term (current) use of oral hypoglycemic drugs; Z79.85 Long-term (current) use of injectable non-insulin antidiabetic drugs; Z79.899 Other long term (current) drug therapy; Z98.890 Other specified postprocedural states
CPT/HCPCS: 45385; 45380; 82947; 88305; J2003; J2704